=== PATIENT | male | born 1990 | race Caucasian/White ===

== ENCOUNTER 2016-12-01 19:24 | Emergency (ER) | payer OTHER ==
[~2016-12-01] VITALS: Ht 175.3 cm; Wt 70.3 kg
[~2016-12-01 19:24] MED LIST: GLIM2TAB PO; INSULANT SC; LISI-538 PO; METF750T PO
[2016-12-01] MEDS ORDERED: TOUJ1.2I SC (20:01)
[2016-12-01] MEDS ORDERED: VIST50CA PO (20:01)
[2016-12-01] MEDS ORDERED: METF1000 PO (20:01)
[2016-12-01] MEDS ORDERED: ZOLO50TA PO (20:01)
[2016-12-01] MEDS ORDERED: NS 1,000 ML IV ONE (22:30)
[2016-12-01] MEDS ORDERED: ONDANSETRON 4MG/2ML VIAL (J2405) IV ONE (22:30)
[2016-12-01] MEDS ORDERED: KETOROLAC 30 MG/ML VIAL (J1885) IV ONE (22:30)
[2016-12-01 23:04] LABS: BASO % 0.5 % (0.0-1.0); EOS # 0.2 K/mm3 (0.0-0.50); EOS % 1.8 % (0.0-3.0); LARGE UNSTAINED CELL # 0.2 K/mm3 (0.0-0.4); LARGE UNSTAINED CELL % 2.2 % (0.0-4.0); LYMPH # 4.2 K/mm3 (1.5-6.5); LYMPH % 35.6 % (24.0-44.0); MEAN CORPUSCULAR HGB CONC 34.4 g/dl (32.0-36.5); MEAN CORPUSCULAR VOLUME 87.2 fl (80.0-96.0); MONO # 0.8 K/mm3 (0.0-0.8); MONO % 7.1 % (0.0-5.0); NEUTROPHILS # 5.9 K/mm3 (1.8-7.7); NEUTROPHILS % 52.8 % (36.0-66.0); PLATELET COUNT, AUTOMATED 249 k/mm3 (150-450); RED CELL DISTRIBUTION WIDTH 11.5 % (11.5-14.5); WHITE BLOOD COUNT 11.2 K/mm3 (4.0-10.0)
[2016-12-01 23:27] LABS: MICROSCOPIC INDICATED? MAN YES (NO)
[2016-12-01 23:46] LABS: RBC, URINE TNTC /hpf (0-3); WBC, URINE 0-1 /hpf (0-3)
[2016-12-01 23:47] LABS: SQUAMOUS EPITHELIAL CELL URINE NONE SEEN /hpf (SMALL AMT)
[2016-12-01 23:48] LABS: CALCIUM OXALATE CRYSTALS,URINE LARGE AMOUNT /hpf
[2016-12-01 23:50] LABS: BACTERIA, URINE NONE SEEN; HYALINE CAST, URINE NONE SEEN /lpf (0-1); MICROSCOPIC EXAM PERFORMED
[2016-12-01 23:54] LABS: ALBUMIN 4.5 GM/DL (3.2-5.2); ALBUMIN/GLOBULIN RATIO 1.18 (1.00-1.93); ALKALINE PHOSPHATASE 102 U/L (45-117); ALT/SGPT 23 U/L (12-78); ANION GAP 11 MEQ/L (8-16); AST/SGOT 15 U/L (15-37); BILIRUBIN,DIRECT 0.1 MG/DL (0.0-0.2); BILIRUBIN,TOTAL 0.5 MG/DL (0.2-1.0); BLOOD UREA NITROGEN 15 MG/DL (7-18); CALCIUM LEVEL 9.5 MG/DL (8.5-10.1); CARBON DIOXIDE LEVEL 24 MEQ/L (21-32); CHLORIDE LEVEL 107 MEQ/L (98-107); CREATININE FOR GFR 0.89 MG/DL (0.70-1.30); GLOMERULAR FILTRATION RATE > 60.0 (>60); GLUCOSE, FASTING 93 MG/DL (70-105); POTASSIUM SERUM 3.4 MEQ/L (3.5-5.1); SODIUM LEVEL 142 MEQ/L (136-145); TOTAL PROTEIN 8.3 GM/DL (6.4-8.2)
[2016-12-02 02:02] VITALS: BP 121/72
--- NOTE | 2016-12-02 08:05 | REPUSA ---
CT of the abdomen and pelvis without contrast Clinical statement: Pain. Technique: Multiple axial CT images were obtained from the base of the lungs to the floor of the pelv is utilizing 5 mm axial slices without administration of contrast. Coronal and sagittal reconstructio ns were also obtained. Comparison: 06/16/2016. Findings: Chest: The visualized lung bases are clear. Abdomen: The kidneys are normal in size bilaterally. There is numerous nonobstructing stone seen with in both kidneys. There is no evidence of hydronephrosis. The obstructing stone in the distal right ur eter seen on the prior study has resolved. The liver, spleen, pancreas, gallbladder and adrenal gland s are unremarkable. The aorta demonstrates normal caliber and contour. There is no abdominal lymphade nopathy or ascites. Pelvis: The bowel is unremarkable, with no obstructive or inflammatory changes. The appendix is natali l. The urinary bladder is within normal limits. There is no pelvic lymphadenopathy or ascites. The ot her pelvic structures appear unremarkable. Bones: There are no suspicious osseous abnormalities seen. Impression: Bilateral nonobstructing nephrolithiasis. No obstructive or inflammatory bowel changes. O therwise unremarkable study.
== END 2016-12-02 02:05 | disposition home or self-care (01) ==
LOC: M ED 20:57
DX: R31.9 Hematuria, unspecified (principal); R10.32 Left lower quadrant pain; R11.10 Vomiting, unspecified; E11.9 Type 2 diabetes mellitus without complications; Z87.442 Personal history of urinary calculi; F99 Mental disorder, not otherwise specified; F17.210 Nicotine dependence, cigarettes, uncomplicated; Z79.899 Other long term (current) drug therapy; Z79.84 Long term (current) use of oral hypoglycemic drugs; Z79.4 Long term (current) use of insulin
CPT/HCPCS: 74176; 80048; 80076; 81000; 83690; 85025; 87086; 96361; 96374; 96375; 99282; J1885; J2405

== ENCOUNTER 2017-01-12 17:00 | Inpatient (IN) | payer OTHER ==
[~2017-01-12] VITALS: Ht 175.3 cm; Wt 68.1 kg
[~2017-01-12 17:00] MED LIST changes: +METF1000 PO; +TOUJ1.2I SC; +VIST50CA PO; +ZOLO50TA PO
[2017-01-12 17:42] LABS: MEAN CORPUSCULAR HEMOGLOBIN 29.6 pg (27.0-33.0); MEAN CORPUSCULAR HGB CONC 34.3 g/dl (32.0-36.5); MEAN CORPUSCULAR VOLUME 86.2 fl (80.0-96.0); RED CELL DISTRIBUTION WIDTH 11.8 % (11.5-14.5)
[2017-01-12 18:02] LABS: METHADONE URINE NEGATIVE (NEGATIVE)
[2017-01-12 18:11] LABS: ALBUMIN 4.4 GM/DL (3.2-5.2); ALBUMIN/GLOBULIN RATIO 1.42 (1.00-1.93); ALKALINE PHOSPHATASE 86 U/L (45-117); ALT/SGPT 25 U/L (12-78); ANION GAP 9 MEQ/L (8-16); AST/SGOT 14 U/L (15-37); BILIRUBIN,DIRECT 0.2 MG/DL (0.0-0.2); BILIRUBIN,TOTAL 0.6 MG/DL (0.2-1.0); BLOOD UREA NITROGEN 14 MG/DL (7-18); CARBON DIOXIDE LEVEL 25 MEQ/L (21-32); CHLORIDE LEVEL 106 MEQ/L (98-107); CREATININE FOR GFR 0.97 MG/DL (0.70-1.30); GLOMERULAR FILTRATION RATE > 60.0 (>60); GLUCOSE, FASTING 139 MG/DL (70-105); POTASSIUM SERUM 3.9 MEQ/L (3.5-5.1); SODIUM LEVEL 140 MEQ/L (136-145); TOTAL PROTEIN 7.5 GM/DL (6.4-8.2)
[2017-01-12] MEDS ORDERED: metFORMIN (GLUCOPHAGE) 1000 MG TABLET PO ONE ×2 (20:45→22:15)
[2017-01-12] MEDS ORDERED: MAALOX 30 ML SUSP *UDC PO PRN (21:00)
[2017-01-12] MEDS ORDERED: GLIMEPIRIDE 2 MG TAB PO ONE ×2 (21:00→22:30)
[2017-01-12] MEDS ORDERED: MOM 30ML SUSPENSION UDC PO PRN (21:00)
[2017-01-12] MEDS ORDERED: GLIMEPIRIDE 2 MG TAB PO SCH (21:00)
[2017-01-12 23:05] VITALS: BP 114/80
[2017-01-13] MEDS: traZODone 50 MG TAB PO PRN ×2 (00:56→22:35)
[2017-01-13] MEDS: ACETAMINOPHEN TAB 650MG DOSE (2X325MG) PO PRN ×2 (01:00→15:37)
[2017-01-13 06:21] VITALS: BP 127/64
[2017-01-13] MEDS: NICOTINE 21MG/24HR 1 EA TRANSDERMAL TD SCH (08:25)
--- NOTE | 2017-01-13 10:31 | HPEPDOC ---
Medical History and Physical Date of Admission Jan 12, 2017 at 20:59 History and Physical PCP: Dr Bran Gutierrez [facility] ATTENDING: Dr. Norman Murphy HPI: 26yoM admitted to [facility] for Depression, being medically examined today. No acute medical complaints today. Denies any fevers, chills, weakness, fatigue, SHARMA , CP, SOB, cough, palpitations, abdominal pain, N/V/D or changes in bowel or bladder habits. PMHx: IDDM Anxiety Depression Bipolar disorder OCD Insomnia H/O SI PSHX: heart surgery at 6 wk old. SOCHX: Resides in: [facility] Marital Status: single Kids: 2 Employment: unemployed Tobacco use: 4 per day ETOH: denies Illicit Drugs: marijuana "as often as I can" IV Drug Use: Denies Tattoos done unprofessionally: x 6 FAMHX: Mother: Alive, HTN Father: Alive, unknown Siblings: 3 brothers, 1 sister Alive, well Children: Alive, well Unexpected deaths due to medical reasons: None. ROS: As noted in HPI, otherwise 11pt ROS of systems reviewed and unremarkable. PE: GEN: 26yoM, appears stated age. Well-nourished, well developed. No acute distress. Alert and oriented x 3. Pleasant, interactive. HEENT: Normocephalic, atraumatic. Pupils are equal, round, and reactive to light. Extraocular movements are intact. No nystagmus appreciated. Sclera are nonicteric. Conjunctiva without injection. Nose midline. Nasal turbinates without bogginess. EACs both patent BL. TMs both visualized and lima with good cone of light, no bulging or erythema. No facial asymmetry. Moist mucous membranes. Dentition fair. Pharynx pink and moist, no cobblestoning. Neck supple , trachea midline. No lymphadenopathy or thyromegaly appreciated. CHEST: Regular rate and rhythm, +S1, +S2 LUNGS: Clear to auscultation bilaterally. No wheezes, rales, or rhonchi. Breathing appears symmetric and easy. Patient is speaking in full sentences. No accessory muscle use. ABD: Round, soft, non-tender, non-distended. +Bowel sounds throughout. No rebound or guarding. No costovertebral angle tenderness. EXT: Pulses 2+ bilaterally dorsalis pedis and radial. No lower extremity edema appreciated. SKIN: Igo, dry, warm. Capillary refill <2sec. No rashes. NEURO: Alert and oriented x 3. Cranial nerves III-XII are intact. No focal deficits appreciated. EKG: pending. A&P: 26yoM admitted to [facility] for Depression 1. Psych. Plan per Psychiatry. Obtain baseline EKG to assure the safety of psychiatric medications as they can prolong the QT interval. 2. Nicotine dependence. Patch available. 3. IDDM. Update Hgb A1c. FSBS BID. CC diet. Continue Glimepiride 2 mg BID. Continue Metformin 1000mg BID. Pt is on Toujeo 18units as outpt, which he can resume at discharge. Will request Levemir 10 units QPM. 4. Follow up with PCP on discharge. 5. Substance abuse. Per psychiatry. 6. H/O tattoos done unprofessionally. Pt agrees to HIV/Hepatitis screening. 7. Staff member Harrison present throughout exam. Vital Signs Vital Signs Date Time Temp Pulse Resp B/P Pulse Ox O2 Delivery O2 Flow Rate FiO2 01/13/17 06:21 98.8 102 16 127/64 01/12/17 21:10 95 01/12/17 17:01 Room Air Laboratory Data Labs 24H Laboratory Tests 2 01/12/17 17:30: Acetaminophen Level < 2.0L, Aspartate Amino Transf (AST/SGOT) 14L, Alanine Aminotransferase (ALT/SGPT) 25, Alkaline Phosphatase 86, Total Bilirubin 0.6, Direct Bilirubin 0.2, Albumin 4.4, Albumin/Globulin Ratio 1.42, Anion Gap 9, Calcium Level 9.0, Ethyl Alcohol Level < 0.003, Glomerular Filtration Rate > 60.0, Salicylates Level < 1.7L, Thyroid Stimulating Hormone (TSH) 0.397, Total Protein 7.5, Urine Amphetamines Screen NEGATIVE, Urine Benzodiazepines Screen POSITIVEH, Urine Opiates Screen NEGATIVE, Urine Barbiturates Screen NEGATIVE, Urine Cannabinoids Screen POSITIVEH, Urine Cocaine Metabolite Screen NEGATIVE, Urine Methadone Screen NEGATIVE, Urine Phencyclidine Screen NEGATIVE CBC/BMP Laboratory Tests 01/12/17 17:30 Red Blood Count 5.06, Mean Corpuscular Volume 86.2, Mean Corpuscular Hemoglobin 29.6, Mean Corpuscular Hemoglobin Concent 34.3, Red Cell Distribution Width 11.8 Home Medications Scheduled (Toujeo Solostar) 300 Unit/Ml Inj 18 UNIT SC DAILY Glimepiride (Glimepiride) 2 Mg Tab 2 MG PO BID Metformin Hydrochloride (Metformin HCl) 1,000 Mg Tab 1,000 MG PO BID Sertraline Hcl (Zoloft) 50 Mg Tab 50 MG PO DAILY Scheduled PRN Hydroxyzine Pamoate (Vistaril) 50 Mg Cap 50 MG PO PRN ANXIETY/AGITATION Allergies Coded Allergies: No Known Allergies (Unverified , 02/26/16) Stacie Parnell Jan 13, 2017 10:31
[2017-01-13] MEDS: GLIMEPIRIDE 2 MG TAB PO SCH ×2 (11:22→21:08)
[2017-01-13] MEDS: metFORMIN (GLUCOPHAGE) 1000 MG TABLET PO SCH ×2 (11:22→21:08)
[2017-01-13 18:00] VITALS: BP 126/69
[2017-01-13] MEDS ORDERED: hydrOXYzine 50 MG TAB PO PRN (18:45)
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
[2017-01-13] MEDS: LEVEMIR (INSULIN DETEMIR) 1 UNITS/0.01ML SC SCH (21:08)
[2017-01-13] MEDS ORDERED: traZODone 50 MG TAB PO ONE (23:30)
[2017-01-14 07:18] VITALS: BP 130/76
[2017-01-14] MEDS: NICOTINE 21MG/24HR 1 EA TRANSDERMAL TD SCH (08:52)
[2017-01-14] MEDS: GLIMEPIRIDE 2 MG TAB PO SCH ×2 (08:52→21:40)
[2017-01-14] MEDS: metFORMIN (GLUCOPHAGE) 1000 MG TABLET PO SCH (08:52)
--- NOTE | 2017-01-14 14:45 | IPNPDOC ---
[facility] Progress Note Progress Note DATE OF SERVICE: 01/14/17 HISTORY: This is the fourth hospitalization according to patient who is a 26- year-old male who brought himself to the emergency room after experiencing suicidal ideation to go into the [place] across the [place] from his home and hang himself from a tree. Patient reports improvement to symptoms of anxiety and depression, denies suicidal and homicidal ideation, denies audiovisual hallucinations, denies urge to engage in self-injurious behavior. 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 Patient indicates his appetite is stabilizing, reports improvement to energy level and denies challenges concentration and focus. Patient states trazodone taken last night was only partially effective, was provided with second dose with improved affect, makes requests today for trazodone dose increase. 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 Medication options were again reviewed with patient who continues to deny need for psychotropic medications citing lack of need and has not needed to utilize PRN anxiolytic. Patient reiterates he feels he will benefit from psychotherapy. Patient speaks openly today about "my twitch and my tic," indicates symptoms began in 2008 with no known cause. Patient reiterates today he has OCD stating, "I'm OCD because I can't stand odd numbers, disorganization, I like a clean house, and I'm fidgety." Patient reiterates that he feels marijuana is the most effective medication for treating symptoms of "my bipolar mood swings and my anxiety," states he intends to continue to use marijuana noting, "I'm dependent on it but I plan to get on disability so that I can get medical marijuana so I can continue to use." Patient has been strongly encouraged to consider participating in substance abuse treatment, is declining at this time. When queried as to positive UDS for benzodiazepines at time of admission, patient indicates "a friend" provided him with Valium just prior to admission due to symptoms of anxiety and agitation, describes as a "one time thing." Nursing was made aware patient report of vomiting 1 this morning which she attributes to need for metformin dosing adjustment. Patient was instructed to inform nursing of symptoms of nausea or vomiting return. VITALS: See below NEW TEST RESULTS: Hepatitis negative. Labs indicate elevated glucose and low AST , PA is monitoring. PAST MEDICAL/SURGICAL HISTORY: Patient has a history of heart surgery at 6 weeks of age noting, "I was oxygen deprived for 6 weeks," diabetes mellitus, insulin-dependent. 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 UDS positive for cannabinoids and benzodiazepines EKG pending CURRENT MEDICATIONS: See below MENTAL STATUS EXAMINATION: General appearance: Patient is a 26-year old male, who is pleasant and cooperative, presents with adequate personal hygiene, dressed in hospital clothing, makes improved eye contact today, ambulates with steady gait, appears stated age Speech: Less pressure today, of generally normal rate, rhythm, volume, coherent , spontaneous. Thought processes: Linear, logical, goal-directed, less circumstantiality Thought content: Logical, rational, no paranoia noted. Abstract reasoning and computation: Appears intact. Description of associations: Intact. Description of abnormal or psychotic thoughts: Denies suicidal or homicidal ideation, denies audiovisual hallucinations, however, reports history of visual hallucinations but only when sleep deprived, does not appear to be responding to internal stimuli, does not endorse bizarre or paranoid ideation, does not appear preoccupied with violence or obsessions. Judgment: Poor, some improvement Insight: Poor Orientation: A and O 3. Recent and remote memory: Appear intact. Attention span and concentration: Appears adequate. Fund of knowledge: Appears adequate. Mood: "Pretty good, my mood is not so up and down." Patient reports reduced symptoms of anxiety and depression, no mood lability noted Affect: Constricted, and brightens 2, congruent with mood DIAGNOSES: Unspecified mood disorder, cannabis use disorder, rule out IED, rule out ICD, rule out OCD, rule out bipolar disorder, rule out anxiety disorder, rule out depressive disorder, rule out PTSD, rule out personality disorder ASSESSMENT: Patient appears to be adjusting to unit, is sociable, pleasant and cooperative, is participating in unit activities. Patient was being prescribed Zoloft 50 mg by outpatient provider, denies noting improvement to symptoms with medication, indicates he was only partially medication compliant. Patient denies need for psychotropic medication, is requesting dose increased trazodone in effort to improve sleep, has not had cause to utilize Vistaril 50 mg PRN for anxiety/agitation. Patient reiterates he has undergone numerous medications trials, is unable to provide concrete information on past medication trials, has signed ROIs for social work nurse to pursue previous treatment records. Patient denies suicidal and homicidal ideation and verbalizes awareness of how to access supportive services on the unit if needed. Will increase trazodone to address sleep challenges and will continue to collect background treatment information, and will monitor patient's response to medications and for side effects. Will evaluate patient's safety, resolution of suicidal ideation, and discharge readiness. Patient indicates when prepared for discharge she would like to return home with girlfriend and resume treatment with [facility] services for psychotherapy. MANAGEMENT PLAN: Increase trazodone to 100 mg po hs PRN insomnia. Continue hydroxyzine 50 mg po q 6 hours PRN anxiety/agitation Continue to encourage patient to consider taking psychotropic medication to address symptoms if appropriate Maintain safety precautions Patient to attend groups and participate in unit programming to develop coping strategies Engage patient in discharge planning process and arrange meeting with support system to ensure safe discharge planning when appropriate Patient to follow up with PCM upon discharge TIME SPENT: 35 minutes Vital Signs Vital Signs Date Time Temp Pulse Resp B/P Pulse Ox O2 Delivery O2 Flow Rate FiO2 01/14/17 07:18 98.3 97 16 130/76 01/12/17 21:10 95 01/12/17 17:01 Room Air Current Medications Current Medications Acetaminophen (Tylenol Tab) 650 mg Q6HP PRN PO HEADACHE or DISCOMFORT Last administered on 01/13/17 15:37; Start 01/12/17 at 21:00; Stop 02/11/17 at 20:59 Al Hydrox/Mg Hydrox/Simethicone (Mylanta) 30 ml Q4HP PRN PO HEARTBURN/ INDIGESTION; Start 01/12/17 at 21:00; Stop 02/11/17 at 20:59 Glimepiride (Amaryl) 2 mg BID PO Last administered on 01/14/17 08:52; Start at 09:00; Stop 02/12/17 at 08:59 Glimepiride (Amaryl) 2 mg QHS PO ; Start 01/12/17 at 21:00; Stop 01/12/17 at 21: 06; Status DC Home Med (Med Rec Complete!) ASDIRECTED XX ; Start 01/12/17 at 19:45; Stop at 19:45; Status DC Hydroxyzine HCl (Atarax) 50 mg Q6HP PRN PO anxiety/agitation; Start 01/13/17 at 18:45; Stop 02/12/17 at 18:44 Insulin Detemir (Levemir Insulin) 10 units QHS SC Last administered on 21:08; Start 01/13/17 at 21:00; Stop 02/12/17 at 20:59 Magnesium Hydroxide (Milk Of Magnesia) 30 ml DAILYPRN PRN PO CONSTIPATION; Start 01/12/17 at 21:00; Stop 02/11/17 at 20:59 Metformin HCl (Glucophage) 1,000 mg BID PO Last administered on 01/14/17 08:52 ; Start 01/13/17 at 09:00; Stop 02/12/17 at 08:59 Nicotine (Nicoderm Cq 21mg) 1 patch DAILY TD Last administered on 01/14/17 08: 52; Start 01/13/17 at 09:00; Stop 02/12/17 at 08:59 Trazodone HCl (Desyrel) 50 mg QHSP PRN PO INSOMNIA Last administered on 22:35; Start 01/12/17 at 21:00; Stop 02/11/17 at 20:59 Allergies Coded Allergies: No Known Allergies (Unverified , 02/26/16) Lucero Torres Jan 14, 2017 14:45
[2017-01-14] MEDS: metFORMIN (GLUCOPHAGE) 500 MG TAB PO SCH (17:27)
[2017-01-14 18:00] VITALS: BP 127/80
[2017-01-14] MEDS: LEVEMIR (INSULIN DETEMIR) 1 UNITS/0.01ML SC SCH (21:40)
[2017-01-14] MEDS: traZODone 100 MG TAB PO PRN (23:19)
[2017-01-15 06:40] VITALS: BP 114/62
[2017-01-15] MEDS: NICOTINE 21MG/24HR 1 EA TRANSDERMAL TD SCH (08:13)
[2017-01-15] MEDS: metFORMIN (GLUCOPHAGE) 500 MG TAB PO SCH ×2 (08:13→17:49)
[2017-01-15] MEDS: GLIMEPIRIDE 2 MG TAB PO SCH ×2 (08:13→22:29)
[2017-01-15 18:00] VITALS: BP 118/66
--- NOTE | 2017-01-15 18:52 | ECGEPIP ---
Stationary ECG Study [facility] Test Date: 2017-01-15 Pat Name: PEARL BUSTOS Department: Room: [place] [address] Gender: M Child Welfare Director: EILEEN : 1990 Requested By: Lucero Torres Order Number: [id number] Reading MD: Norman Murphy Measurements Intervals [place] Rate: 98 P: 46 OR: 152 QRS: 65 QRSD: 102 T: 45 QT: 343 QTc: 439 Interpretive Statements SINUS RHYTHM Borderline prolonged QTc Electronically Signed On 01-15-2017 18:51:42 EDT by Norman Murphy
--- NOTE | 2017-01-15 18:53 | IPNPDOC ---
[facility] Progress Note Progress Note DATE OF SERVICE: 01/15/17 INTERVAL HISTORY: Medication Side effects: The patient reports no side effects from his trazodone or hydroxyzine. Behavior/events: He's had no events over the previous evening. He describes that he is anxiously awaiting a visit from his today. He was interested in medical marijuana and whether he could be certified for it. He described interest in what his diagnosis was. Group Attendance: Attended groups today Psychiatric Symptoms: The patient was screened for borderline personality disorder of which she screen positive for especially for fear of abandonment, intense anger, chronic emptiness, fiery relationships, stress-induced paranoia, suspiciousness and billet sawyer losses. VITAL SIGNS: See below. NEW TEST RESULTS: See below CURRENT MEDICATIONS: See below. MENTAL STATUS EXAMINATION: General: Well dressed with good hygiene. Has multiple piercings Speech: Spontaneous and fluid with mild pressured speech Thought processes: Linear and logical Thought content: Perseveration on anxiety and marijuana Abstract reasoning, and computation: Intact Description of associations: Intact Description of abnormal or psychotic thoughts:Denies any suicidal or homicidal ideation. Denies any auditory or visual hallucinations. Does not appear to be responding to internal stimuli. Does not appear to be endorsing any bizarre or paranoid ideation. Judgment: Fair Insight: Fair Orientation: Alert and orientated 3 Recent and remote memory: Intact Attention span and concentration: Intact Fund of knowledge: Adequate Mood: "Okay" Affect: Anxious and dysphoric DIAGNOSES: 1. Borderline personality disorder, provisional. 2. Unspecified anxiety disorder 3. Cannabis use disorder, severe, in controlled setting ASSESSMENT: The patient appears to meet criteria for borderline personality disorder and has a number symptoms that are explained due to the long history of chronic emptiness, depression and anxiety as well as mood fluctuations. Psychometric testing to prove useful to confirm and parse out different aspects of his personality structure. MANAGEMENT PLAN: Medications: Continue trazodone and hydroxyzine Psychotherapy: Encourage group attendance Social: None Misc: None Disposition: The patient will need of further inpatient stay to address stabilization and medication titration. TIME SPENT: 30 minutes. Vital Signs Vital Signs Date Time Temp Pulse Resp B/P Pulse Ox O2 Delivery O2 Flow Rate FiO2 01/15/17 06:40 98.9 100 16 114/62 01/12/17 21:10 95 01/12/17 17:01 Room Air Laboratory Data 24H Labs Laboratory Tests 2 01/15/17 06:36: Bedside Glucose (Misc Panel) 67L 01/15/17 17:47: Bedside Glucose (Misc Panel) 180H Current Medications Current Medications Acetaminophen (Tylenol Tab) 650 mg Q6HP PRN PO HEADACHE or DISCOMFORT Last administered on 01/13/17 15:37; Start 01/12/17 at 21:00; Stop 02/11/17 at 20:59 Al Hydrox/Mg Hydrox/Simethicone (Mylanta) 30 ml Q4HP PRN PO HEARTBURN/ INDIGESTION; Start 01/12/17 at 21:00; Stop 02/11/17 at 20:59 Glimepiride (Amaryl) 2 mg BID PO Last administered on 01/15/17 08:13; Start at 09:00; Stop 02/12/17 at 08:59 Glimepiride (Amaryl) 2 mg QHS PO ; Start 01/12/17 at 21:00; Stop 01/12/17 at 21: 06; Status DC Home Med (Med Rec Complete!) ASDIRECTED XX ; Start 01/12/17 at 19:45; Stop at 19:45; Status DC Hydroxyzine HCl (Atarax) 50 mg Q6HP PRN PO anxiety/agitation; Start 01/13/17 at 18:45; Stop 02/12/17 at 18:44 Insulin Detemir (Levemir Insulin) 10 units QHS SC Last administered on 21:40; Start 01/13/17 at 21:00; Stop 02/12/17 at 20:59 Magnesium Hydroxide (Milk Of Magnesia) 30 ml DAILYPRN PRN PO CONSTIPATION; Start 01/12/17 at 21:00; Stop 02/11/17 at 20:59 Metformin HCl (Glucophage) 500 mg BID@08,18 PO Last administered on 01/15/17 17:49; Start 01/14/17 at 18:00; Stop 02/13/17 at 17:59 Metformin HCl (Glucophage) 1,000 mg BID PO Last administered on 01/14/17 08:52 ; Start 01/13/17 at 09:00; Stop 01/14/17 at 16:52; Status DC Nicotine (Nicoderm Cq 21mg) 1 patch DAILY TD Last administered on 01/15/17 08: 13; Start 01/13/17 at 09:00; Stop 02/12/17 at 08:59 Trazodone HCl (Desyrel) 50 mg QHSP PRN PO INSOMNIA Last administered on 22:35; Start 01/12/17 at 21:00; Stop 01/14/17 at 14:46; Status DC Trazodone HCl (Desyrel) 100 mg QHSP PRN PO INSOMNIA Last administered on 23:19; Start 01/14/17 at 14:45; Stop 02/13/17 at 14:44 Allergies Coded Allergies: No Known Allergies (Unverified , 02/26/16) GME ATTESTATION My preceptor for this patient encounter was physically present in the building during the encounter and was fully available. As needed, all aspects of the patient interview, examination, medical decision making process, and medical care plan development were reviewed and approved by the preceptor. Preceptor is aware and concurs with the plan as stated in the body of this note and will attest to such by his/her cosignature. ALBERTO TERRAZAS DO Jan 15, 2017 18:53
[2017-01-15] MEDS: LEVEMIR (INSULIN DETEMIR) 1 UNITS/0.01ML SC SCH (22:29)
[2017-01-16] MEDS: traZODone 100 MG TAB PO PRN ×2 (00:14→23:04)
[2017-01-16 06:48] VITALS: BP 133/86
[2017-01-16] MEDS: GLIMEPIRIDE 2 MG TAB PO SCH ×2 (08:10→22:05)
[2017-01-16] MEDS: NICOTINE 21MG/24HR 1 EA TRANSDERMAL TD SCH (08:10)
[2017-01-16] MEDS: metFORMIN (GLUCOPHAGE) 500 MG TAB PO SCH ×2 (08:10→17:12)
[2017-01-16 18:00] VITALS: BP 128/72
--- NOTE | 2017-01-16 18:28 | IPNPDOC ---
[facility] Progress Note Progress Note DATE OF SERVICE: 01/16/17 HISTORY: 26 year old male with history of suicidal ideation and wanting to hang himself from a [place]. He has been recently diagnosed as having Borderline personality disorder, provisional, Unspecified anxiety disorder and Cannabis use disorder, severe. Currently he's denying suicidal ideation, homicidal ideation, delusional thoughts, auditory/visual hallucinations.His judgment and insight have improved. He is alert and oriented x 3, cooperative, with good eye contact and good rapport. Speech is normal. Thought process is linear, coherent. he's not a danger to himself or others. VITAL SIGNS: See below. NEW TEST RESULTS: . CURRENT MEDICATIONS: See below. ASSESSMENT:Pt. seems to be fairly stable. MANAGEMENT PLAN: Continue current treatment until discharged. Then, follow up with treatment as an outpatient.. TIME SPENT: 15 minutes. Vital Signs Vital Signs Date Time Temp Pulse Resp B/P Pulse Ox O2 Delivery O2 Flow Rate FiO2 01/16/17 06:48 98.4 99 18 133/86 01/12/17 21:10 95 01/12/17 17:01 Room Air Laboratory Data 24H Labs Laboratory Tests 2 01/16/17 06:40: Bedside Glucose (Misc Panel) 70 Current Medications Current Medications Acetaminophen (Tylenol Tab) 650 mg Q6HP PRN PO HEADACHE or DISCOMFORT Last administered on 01/13/17 15:37; Start 01/12/17 at 21:00; Stop 02/11/17 at 20:59 Al Hydrox/Mg Hydrox/Simethicone (Mylanta) 30 ml Q4HP PRN PO HEARTBURN/ INDIGESTION; Start 01/12/17 at 21:00; Stop 02/11/17 at 20:59 Glimepiride (Amaryl) 2 mg BID PO Last administered on 01/16/17 08:10; Start at 09:00; Stop 02/12/17 at 08:59 Glimepiride (Amaryl) 2 mg QHS PO ; Start 01/12/17 at 21:00; Stop 01/12/17 at 21: 06; Status DC Home Med (Med Rec Complete!) ASDIRECTED XX ; Start 01/12/17 at 19:45; Stop at 19:45; Status DC Hydroxyzine HCl (Atarax) 50 mg Q6HP PRN PO anxiety/agitation; Start 01/13/17 at 18:45; Stop 02/12/17 at 18:44 Insulin Detemir (Levemir Insulin) 10 units QHS SC Last administered on 22:29; Start 01/13/17 at 21:00; Stop 02/12/17 at 20:59 Magnesium Hydroxide (Milk Of Magnesia) 30 ml DAILYPRN PRN PO CONSTIPATION; Start 01/12/17 at 21:00; Stop 02/11/17 at 20:59 Metformin HCl (Glucophage) 500 mg BID@,18 PO Last administered on 01/16/17 17:12; Start 01/14/17 at 18:00; Stop 02/13/17 at 17:59 Metformin HCl (Glucophage) 1,000 mg BID PO Last administered on 01/14/17 08:52 ; Start 01/13/17 at 09:00; Stop 01/14/17 at 16:52; Status DC Nicotine (Nicoderm Cq 21mg) 1 patch DAILY TD Last administered on 01/16/17 08: 10; Start 01/13/17 at 09:00; Stop 02/12/17 at 08:59 Trazodone HCl (Desyrel) 50 mg QHSP PRN PO INSOMNIA Last administered on 22:35; Start 01/12/17 at 21:00; Stop 01/14/17 at 14:46; Status DC Trazodone HCl (Desyrel) 100 mg QHSP PRN PO INSOMNIA Last administered on 00:14; Start 01/14/17 at 14:45; Stop 02/13/17 at 14:44 Allergies Coded Allergies: No Known Allergies (Unverified , 02/26/16) RAYO ALEJANDRO MD Jan 16, 2017 18:28 Metformin HCl (Glucophage) 1,000 mg BID PO Last administered on 01/14/17 08:52 ; Start 01/13/17 at 09:00; Stop 01/14/17 at 16:52; Status DC Nicotine (Nicoderm Cq 21mg) 1 patch DAILY TD Last administered on 01/16/17 08: 10; Start 01/13/17 at 09:00; Stop 02/12/17 at 08:59 Trazodone HCl (Desyrel) 50 mg QHSP PRN PO INSOMNIA Last administered on 22:35; Start 01/12/17 at 21:00; Stop 01/14/17 at 14:46; Status DC Trazodone HCl (Desyrel) 100 mg QHSP PRN PO INSOMNIA Last administered on 00:14; Start 01/14/17 at 14:45; Stop 02/13/17 at 14:44 Allergies Coded Allergies: No Known Allergies (Unverified , 02/26/16) RAYO ALEJANDRO MD Jan 16, 2017 18:28
[2017-01-16] MEDS: LEVEMIR (INSULIN DETEMIR) 1 UNITS/0.01ML SC SCH (22:09)
[2017-01-17 06:26] VITALS: BP 134/75
[2017-01-17] MEDS: NICOTINE 21MG/24HR 1 EA TRANSDERMAL TD SCH (08:24)
[2017-01-17] MEDS: GLIMEPIRIDE 2 MG TAB PO SCH ×2 (08:24→22:26)
[2017-01-17] MEDS: metFORMIN (GLUCOPHAGE) 500 MG TAB PO SCH ×2 (08:24→17:18)
--- NOTE | 2017-01-17 11:41 | IPNPDOC ---
[facility] Progress Note Progress Note DATE OF SERVICE: 01/17/17 HISTORY: This is the fourth hospitalization according to patient who is a 26- year-old male who brought himself to the emergency room after experiencing suicidal ideation to go into the [place] across the [place] from his home and hang himself from a tree. Patient denies symptoms of anxiety and depression, denies suicidal and homicidal ideation, denies audiovisual hallucinations, denies urge to engage in self-injurious behavior. Patient states he is feeling better today , denies mood lability, denies irritability, and agitation. Patient states he and girlfriend got into a verbal altercation over telephone over the weekend and he was able to utilize coping mechanisms and affectively de-escalate, notes they have since reconciled. Patient indicates appetite is stable, denies challenges with energy level or concentration and focus, reports improvement to sleep and denies struggling with sleep at home. Patient has not needed to utilize PRN hydroxyzine. Patient denies medication side effects. Patient reiterates today when prepared for discharge he would like to return home with girlfriend and family and resume outpatient psychotherapy [facility]. Medication options were again reviewed with patient who continues to deny need for psychotropic medications citing lack of need, reiterates today he intends to resume use of marijuana in an effort to medicate symptoms of anxiety , OCD, "my moodiness," and sleep related challenges. Patient notes marijuana is the only effective medication for treating aforementioned symptoms. Patient reiterates he feels he will benefit from psychotherapy only. Patient has been strongly encouraged to consider participating in substance abuse treatment, is declining at this time. At time of admission UDS was also positive for an today as a feels which patient has indicated is due to "a friend" providing him with Valium just prior to admission due to symptoms of anxiety and agitation, described as a "one time thing." Previous treatment records procured by hospice bereavement coordinator, reviewed date of entry. Patient's EKG results were reviewed and patient denies all cardiac symptoms including dizziness, headache, palpitations, chest pain, and shortness of breath. VITALS: See below NEW TEST RESULTS: Hepatitis negative. Labs indicate elevated glucose and low AST , PA is monitoring. PAST MEDICAL/SURGICAL HISTORY: Patient has a history of heart surgery at 6 weeks , diabetes mellitus, insulin-dependent. 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 UDS positive for cannabinoids and benzodiazepines 01/15/17 EKG SINUS RHYTHM Borderline prolonged QTc (439). Patient is asymptomatic with outpatient follow-up recommended CURRENT MEDICATIONS: See below MENTAL STATUS EXAMINATION: General appearance: Patient is a 26-year old male, who is pleasant and cooperative, presents with adequate personal hygiene, dressed in hospital clothing, makes adequate eye contact, ambulates with steady gait, appears stated age Speech: Less pressure today, of generally normal rhythm, volume, coherent, spontaneous. Thought processes: Linear, logical, goal-directed, less circumstantiality Thought content: Logical, rational, no paranoia noted. Abstract reasoning and computation: Appears intact. Description of associations: Intact. Description of abnormal or psychotic thoughts: Denies suicidal or homicidal ideation, denies audiovisual hallucinations, is not responding to internal stimuli, does not endorse bizarre or paranoid ideation, does not appear preoccupied with violence or obsessions. Judgment: Fair, has improved during treatment Insight: Limited, has improved during treatment Orientation: A and O 3. Recent and remote memory: Appear intact. Attention span and concentration: Adequate. Fund of knowledge: Adequate. Mood: "Good, much better, treatment is helping me with my coping mechanisms and I'm able to control my mood." Patient denies anxiety and depression, no mood lability noted Affect: Full range, brightens frequently and appropriately, congruent with mood DIAGNOSES: Unspecified mood disorder, cannabis use disorder, OCD, Tic disorder disorder, rule out IED, rule out ICD, rule out bipolar disorder II, rule out anxiety disorder, rule out depressive disorder, rule out PTSD, rule out personality disorder ASSESSMENT: Patient has adjusted to unit, is visible, sociable, easily engaged, and has been participating well in unit programming. Patient was being prescribed Zoloft 50 mg by outpatient provider, denies noting improvement to symptoms with medication, indicates he was only partially medication compliant. Patient reiterates today he is undergone numerous medication trials and patient and movie writer spoke at length today regarding medications, patient reiterates he does not want to take psychotropic medications, feels he only needs to participate in psychotherapy to address symptoms. Trazodone was discontinued due to recent EKG results of borderline prolonged QTC, patient is asymptomatic and denies symptoms of shortness of breath, dizziness, headache, palpitations, and chest pain. Patient is aware he has hydroxyzine available to him PRN and for sleep, states he has not needed to utilize medication, also notes he has medication at home from prior prescription and will not need prescription at time of discharge, has used in the past with good effect reported. Patient reiterates today that he intends to resume regular use of marijuana after discharge and intends to pursue medicinal marijuana prescription through outpatient provider. Patient makes request today for movie writer to provide him with diagnoses of PTSD in effort to qualify for medicinal marijuana. The risks of marijuana use were reviewed with patient and recommendation was made that patient not to engage in substance use/abuse and not combine psychotropic medications; patient verbalized understanding. Patient denies suicidal and homicidal ideation and verbalizes awareness of how to access supportive services on the unit if needed. Will continue to monitor patient's response to inpatient treatment environment and will monitor patient's response to medications and for side effects. Will continue to evaluate patient's safety and discharge readiness. Family meeting has been completed and patient's girlfriend denies concerns patient's return to home and patient indicates he feels he is prepared for discharge. Patient is aware that discharge is being tentatively scheduled for tomorrow morning at which time he will return home with girlfriend and resume treatment with [facility] for psychotherapy. MANAGEMENT PLAN: Discontinue trazodone 100 mg po hs PRN insomnia. Change hydroxyzine to 50 mg po q 6 hours PRN anxiety/sleep Continue to encourage patient to consider taking psychotropic medication to address symptoms if appropriate Maintain safety precautions Patient to attend groups and participate in unit programming to develop coping strategies Engage patient in discharge planning process and arrange meeting with support system to ensure safe discharge planning when appropriate Patient to follow up with PCM upon discharge TIME SPENT: 35 minutes Vital Signs Vital Signs Date Time Temp Pulse Resp B/P Pulse Ox O2 Delivery O2 Flow Rate FiO2 01/17/17 06:26 98.9 81 16 134/75 01/12/17 21:10 95 01/12/17 17:01 Room Air Laboratory Data 24H Labs Laboratory Tests 2 01/16/17 17:12: Bedside Glucose (Misc Panel) 196H Current Medications Current Medications Acetaminophen (Tylenol Tab) 650 mg Q6HP PRN PO HEADACHE or DISCOMFORT Last administered on 01/13/17 15:37; Start 01/12/17 at 21:00; Stop 02/11/17 at 20:59 Al Hydrox/Mg Hydrox/Simethicone (Mylanta) 30 ml Q4HP PRN PO HEARTBURN/ INDIGESTION; Start 01/12/17 at 21:00; Stop 02/11/17 at 20:59 Glimepiride (Amaryl) 2 mg BID PO Last administered on 01/17/17 08:24; Start at 09:00; Stop 02/12/17 at 08:59 Glimepiride (Amaryl) 2 mg QHS PO ; Start 01/12/17 at 21:00; Stop 01/12/17 at 21: 06; Status DC Home Med (Med Rec Complete!) ASDIRECTED XX ; Start 01/12/17 at 19:45; Stop at 19:45; Status DC Hydroxyzine HCl (Atarax) 50 mg Q6HP PRN PO anxiety/agitation; Start 01/13/17 at 18:45; Stop 02/12/17 at 18:44 Insulin Detemir (Levemir Insulin) 10 units QHS SC Last administered on 22:09; Start 01/13/17 at 21:00; Stop 02/12/17 at 20:59 Magnesium Hydroxide (Milk Of Magnesia) 30 ml DAILYPRN PRN PO CONSTIPATION; Start 01/12/17 at 21:00; Stop 02/11/17 at 20:59 Metformin HCl (Glucophage) 500 mg BID@,18 PO Last administered on 01/17/17 08:24; Start 01/14/17 at 18:00; Stop 02/13/17 at 17:59 Metformin HCl (Glucophage) 1,000 mg BID PO Last administered on 01/14/17 08:52 ; Start 01/13/17 at 09:00; Stop 01/14/17 at 16:52; Status DC Nicotine (Nicoderm Cq 21mg) 1 patch DAILY TD Last administered on 01/17/17 08: 24; Start 01/13/17 at 09:00; Stop 02/12/17 at 08:59 Trazodone HCl (Desyrel) 50 mg QHSP PRN PO INSOMNIA Last administered on 22:35; Start 01/12/17 at 21:00; Stop 01/14/17 at 14:46; Status DC Trazodone HCl (Desyrel) 100 mg QHSP PRN PO INSOMNIA Last administered on 23:04; Start 01/14/17 at 14:45; Stop 02/13/17 at 14:44 Allergies Coded Allergies: No Known Allergies (Unverified , 02/26/16) Lucero Torres Jan 17, 2017 11:41
[2017-01-17 18:00] VITALS: BP 140/80
[2017-01-17] MEDS: LEVEMIR (INSULIN DETEMIR) 1 UNITS/0.01ML SC SCH (22:28)
[2017-01-18] MEDS: metFORMIN (GLUCOPHAGE) 500 MG TAB PO SCH (08:25)
[2017-01-18] MEDS: NICOTINE 21MG/24HR 1 EA TRANSDERMAL TD SCH (08:25)
[2017-01-18] MEDS: GLIMEPIRIDE 2 MG TAB PO SCH (08:25)
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
== END 2017-01-18 14:20 | disposition home or self-care (01) | DRG 753 ==
LOC: M ED 18:23 → M ED INP 20:59 → M PSY 23:07
PROVIDERS: ADMIT Psychiatry & Neurology Child & Adolescent Psychiatry; ATTEND Psychiatry & Neurology Psychiatry
DX: F39 Unspecified mood [affective] disorder (principal); E11.9 Type 2 diabetes mellitus without complications; F31.81 Bipolar II disorder; F12.90 Cannabis use, unspecified, uncomplicated; F95.9 Tic disorder, unspecified; F42.9 Obsessive-compulsive disorder, unspecified; F41.9 Anxiety disorder, unspecified; Z79.899 Other long term (current) drug therapy; F60.9 Personality disorder, unspecified; F17.200 Nicotine dependence, unspecified, uncomplicated

== ENCOUNTER → 2017-04-19 | Outpatient (CLI) | payer OTHER ==
[~2017-04-19] MED LIST changes: -METF1000 PO; +METF10004 PO; +METF500T13 PO; +ZOLO100T PO; +tujeo SC
--- NOTE | 2017-04-19 13:08 | REP ---
HIDA SCAN WITH GALLBLADDER EJECTION FRACTION: Following the intravenous administration of 6.6 mCi of technetium-99m mebrofenin, multiple images of the right upper quadrant are performed every 5 minutes for a period of 1 hour. Gallbladder is visualized at 10 minutes post injection. There is biliary to bowel transit at 15 minutes post injection with no scintigraphic evidence of cholecystitis. At the 1 hour mehdi 8 ounces of Ensure Enlive was ingested and further imaging performed for 1 hour. Gallbladder activity is measured and the gallbladder ejection fraction is calculated to be 60% which was normal. IMPRESSION: No gallbladder ejection fraction. No scintigraphic evidence of cholecystitis. Signed by Servando Saeed MD 04/19/2017 03:31 P
== END ==
LOC: M RAD 08:36
PROVIDERS: ATTEND Physician Assistant
DX: R10.11 Right upper quadrant pain (principal)

== ENCOUNTER → 2017-06-15 | Outpatient (CLI) | payer OTHER ==
[2017-06-15 17:22] LABS: BASO % 0.4 % (0.0-1.0); EOS # 0.1 K/mm3 (0.0-0.50); EOS % 1.8 % (0.0-3.0); LYMPH # 2.3 K/mm3 (1.5-6.5); LYMPH % 33.6 % (24.0-44.0); MEAN CORPUSCULAR HEMOGLOBIN 31.7 pg (27.0-33.0); MEAN CORPUSCULAR VOLUME 86.2 fl (80.0-96.0); MONO # 0.3 K/mm3 (0.0-0.8); MONO % 4.6 % (0.0-5.0); NEUTROPHILS % 57.2 % (36.0-66.0); RED CELL DISTRIBUTION WIDTH 11.3 % (11.5-14.5)
[2017-06-15 17:38] LABS: MEAN CORPUSCULAR HGB CONC 36.8 g/dl (32.0-36.5)
[2017-06-15 19:32] LABS: ALBUMIN 4.3 GM/DL (3.2-5.2); ALKALINE PHOSPHATASE 101 U/L (45-117); ALT/SGPT 25 U/L (12-78); ANION GAP 11 MEQ/L (8-16); AST/SGOT 9 U/L (15-37); BILIRUBIN,TOTAL 0.6 MG/DL (0.2-1.0); BLOOD UREA NITROGEN 14 MG/DL (7-18); CALCIUM LEVEL 9.7 MG/DL (8.5-10.1); CARBON DIOXIDE LEVEL 24 MEQ/L (21-32); CHLORIDE LEVEL 103 MEQ/L (98-107); CHOLESTEROL LEVEL 162 MG/DL (<200); CREATININE FOR GFR 1.05 MG/DL (0.70-1.30); FREE T4 1.36 NG/DL (0.76-1.46); GLOMERULAR FILTRATION RATE > 60.0 (>60); GLUCOSE, FASTING 273 MG/DL (70-105); POTASSIUM SERUM 4.1 MEQ/L (3.5-5.1); SODIUM LEVEL 138 MEQ/L (136-145); TOTAL PROTEIN 7.6 GM/DL (6.4-8.2); TRIGLYCERIDES LEVEL 96 MG/DL (<150)
[2017-06-15 19:48] LABS: VITAMIN B12 LEVEL 665 PG/ML (247-911)
[2017-06-15 19:49] LABS: FOLATE 21.4 NG/ML (>5.4)
== END ==
LOC: M LAB 16:13
PROVIDERS: ATTEND Physician Assistant
DX: Z00.01 Encounter for general adult medical examination with abnormal findings (principal)

== ENCOUNTER 2017-06-26 17:17 | Emergency (ER) | payer OTHER ==
[~2017-06-26] VITALS: Ht 175.3 cm; Wt 69.1 kg
[~2017-06-26 17:17] MED LIST changes: -METF500T13 PO; -ZOLO100T PO; -tujeo SC
[2017-06-26] MEDS ORDERED: ZOLO100T PO (17:32)
[2017-06-26] MEDS ORDERED: METF500T13 PO (17:32)
[2017-06-26] MEDS ORDERED: tujeo SC (17:32)
[2017-06-26 18:44] LABS: MEAN CORPUSCULAR HEMOGLOBIN 30.1 pg (27.0-33.0); MEAN CORPUSCULAR HGB CONC 35.3 g/dl (32.0-36.5); MEAN CORPUSCULAR VOLUME 85.4 fl (80.0-96.0)
[2017-06-26 19:08] LABS: METHADONE URINE NEGATIVE (NEGATIVE)
[2017-06-26 19:18] LABS: ALBUMIN 4.7 GM/DL (3.2-5.2); ALBUMIN/GLOBULIN RATIO 1.34 (1.00-1.93); ALKALINE PHOSPHATASE 111 U/L (45-117); ALT/SGPT 24 U/L (12-78); ANION GAP 7 MEQ/L (8-16); AST/SGOT 6 U/L (15-37); BILIRUBIN,DIRECT 0.2 MG/DL (0.0-0.2); BILIRUBIN,TOTAL 0.5 MG/DL (0.2-1.0); BLOOD UREA NITROGEN 14 MG/DL (7-18); CALCIUM LEVEL 9.8 MG/DL (8.5-10.1); CARBON DIOXIDE LEVEL 27 MEQ/L (21-32); CHLORIDE LEVEL 105 MEQ/L (98-107); CREATININE FOR GFR 0.83 MG/DL (0.70-1.30); GLOMERULAR FILTRATION RATE > 60.0 (>60); GLUCOSE, FASTING 181 MG/DL (70-105); POTASSIUM SERUM 3.8 MEQ/L (3.5-5.1); SODIUM LEVEL 139 MEQ/L (136-145); TOTAL PROTEIN 8.2 GM/DL (6.4-8.2)
[2017-06-26 20:36] VITALS: BP 120/81
== END 2017-06-26 20:37 | disposition home or self-care (01) ==
LOC: M ED 17:17
DX: Z04.6 Encounter for general psychiatric examination, requested by authority (principal); F43.0 Acute stress reaction; I51.9 Heart disease, unspecified; E11.9 Type 2 diabetes mellitus without complications; F99 Mental disorder, not otherwise specified; Z79.84 Long term (current) use of oral hypoglycemic drugs; Z79.899 Other long term (current) drug therapy

== ENCOUNTER 2018-05-23 09:45 | Emergency (ER) | payer OTHER ==
[2018-05-23 10:10] LABS: BEDSIDE GLUCOSE 171 MG/DL (70-105)
[2018-05-23 10:42] LABS: VENOUS BASE EXCESS 0.4 (-2.0-2.0); VENOUS HCO3 20.2 MEQ/L (23.0-27.0); VENOUS O2 SATURATION 83.2 % (60.0-80.0); VENOUS PARTIAL PRESSURE CO2 23.5 mmHg (38.0-50.0); VENOUS PARTIAL PRESSURE O2 42.7 mmHg (30.0-50.0); VENOUS PH 7.552 UNITS (7.330-7.430); VENOUS STANDARD HCO3 24.4 MEQ/L; VENOUS TOTAL CO2 20.9 MEQ/L (24.0-28.0)
[2018-05-23] MEDS: MORPHINE 4 MG/ML 1ML VIAL/SYRINGE (J2270) IV ×4 (10:42→12:49)
[2018-05-23] MEDS: ONDANSETRON 4MG/2ML VIAL (J2405) IV ×2 (10:42)
[2018-05-23 10:43] LABS: BASO % 0.3 % (0.0-1.0); EOS % 0.2 % (0.0-3.0); HEMATOCRIT 48.5 % (42.0-52.0); HEMOGLOBIN 17.3 g/dl (13.5-17.5); LYMPH % 17.3 % (24.0-44.0); MEAN CORPUSCULAR HEMOGLOBIN 29.8 pg (27.0-33.0); MEAN CORPUSCULAR HGB CONC 35.7 g/dl (32.0-36.5); MEAN CORPUSCULAR VOLUME 83.6 fl (80.0-96.0); MONO # 0.9 10^3/uL (0.0-0.8); MONO % 7.4 % (0.0-5.0); NEUTROPHILS # 8.5 10^3/uL (1.8-7.7); NEUTROPHILS % 73.8 % (36.0-66.0); PLATELET COUNT, AUTOMATED 275 10^3/uL (150-450); RED CELL DISTRIBUTION WIDTH 11.8 % (11.5-14.5); WHITE BLOOD COUNT 11.5 10^3/uL (4.0-10.0)
[2018-05-23] MEDS: NS 1,000 ML IV ×2 (10:43)
[2018-05-23 11:00] LABS: ESTIMATED AVERAGE GLUCOSE 192 MG/DL (60-110); HEMOGLOBIN A1c 8.3 %
[2018-05-23 11:11] LABS: KETONE, URINE AUTO RFX 2+ mg/dL (NEGATIVE); MUCUS, URINE RFX SMALL (NEGATIVE); NITRITE, URINE AUTO RFX NEGATIVE (NEGATIVE); RBC, URINE AUTO RFX TNTC /HPF (0-3); SPECIFIC GRAVITY UR AUTO RFX 1.024 (1.002-1.035); SQUAM EPITHELIAL CELL UR AURFX 1 /HPF (0-6); WBC, URINE AUTO RFX 6 /HPF (0-3)
[2018-05-23 11:29] LABS: LEUKOCYTE ESTERASE UR AUTO RFX TRACE (NEGATIVE)
[2018-05-23 11:39] LABS: ALBUMIN 4.5 GM/DL (3.2-5.2); ALBUMIN/GLOBULIN RATIO 1.25 (1.00-1.93); ALKALINE PHOSPHATASE 74 U/L (45-117); ALT/SGPT 17 U/L (12-78); ANION GAP 13 MEQ/L (8-16); AST/SGOT 15 U/L (7-37); BILIRUBIN,DIRECT 0.3 MG/DL (0.0-0.2); BILIRUBIN,TOTAL 1.2 MG/DL (0.2-1.0); BLOOD UREA NITROGEN 28 MG/DL (7-18); CALCIUM LEVEL 9.3 MG/DL (8.5-10.1); CARBON DIOXIDE LEVEL 25 MEQ/L (21-32); CHLORIDE LEVEL 102 MEQ/L (98-107); CREATININE FOR GFR 1.28 MG/DL (0.70-1.30); GLOMERULAR FILTRATION RATE > 60.0 (>60); GLUCOSE, FASTING 149 MG/DL (70-100); LIPASE 59 U/L (73-393); POTASSIUM SERUM 3.2 MEQ/L (3.5-5.1); SODIUM LEVEL 140 MEQ/L (136-145); TOTAL PROTEIN 8.1 GM/DL (6.4-8.2)
[2018-05-23 11:40] LABS: LACTIC ACID SEPSIS PROTOCOL 1.5 MMOL/L (0.4-2.0)
[2018-05-23] MEDS ORDERED: ISOVUE-370 76% 100ML VIAL (Q9967) As Ordered ×2 (11:45)
[2018-05-23] MEDS: PROMETHAZINE 25 MG TAB PO ×2 (12:46)
[2018-05-23] MEDS: GI COCKTAIL 50ML BTL(HYOSCYAMINE/MAALOX/LIDOCAINE VISCOUS)(1:3:1) PO ×2 (12:48)
[2018-05-23] MEDS: PANTOPRAZOLE 40MG INJ (PROTONIX) (C9113) IV ×2 (12:48)
== END 2018-05-23 13:34 | disposition home or self-care (01) ==
LOC: M ED 09:45
DX: K52.9 Noninfective gastroenteritis and colitis, unspecified (principal); E11.9 Type 2 diabetes mellitus without complications; Z79.84 Long term (current) use of oral hypoglycemic drugs
CPT/HCPCS: C9113

== ENCOUNTER → 2019-02-15 | Outpatient (REF) | payer OTHER ==
[~2019-02-15] MED LIST changes: +AZIT500T2 PO; +FLAG500T PO; +HYDR-3715 PO; +METF500T13 PO; +ZOFR4TAB14 PO; +ZOLO100T PO; +tujeo SC
[2019-02-15 16:26] LABS: APPEARANCE, URINE CLEAR (CLEAR); BACTERIA, URINE AUTO NEGATIVE (NEGATIVE); BILIRUBIN, URINE AUTO NEGATIVE (NEGATIVE); BLOOD, URINE BLOOD NEGATIVE (NEGATIVE); COLOR, URINE STRAW (YELLOW); GLUCOSE, URINE (UA) AUTO 3+ mg/dL (NEGATIVE); KETONE, URINE AUTO NEGATIVE (NEGATIVE); LEUKOCYTE ESTERASE, URINE AUTO NEGATIVE (NEGATIVE); NITRITE, URINE AUTO NEGATIVE (NEGATIVE); PROTEIN, URINE AUTO NEGATIVE (NEGATIVE); RBC, URINE AUTO 2 /HPF (0-3); SPECIFIC GRAVITY URINE AUTO 1.032 (1.002-1.035); SQUAMOUS EPITHELIAL CELL UR AU 0 /HPF (0-6); UROBILINOGEN, URINE AUTO 0.2 mg/dL (0.0-2.0); WBC, URINE AUTO 0 /HPF (0-3)
[2019-02-15 16:27] LABS: BASO % 0.3 % (0.0-1.0); EOS # 0.1 10^3/uL (0.0-0.50); EOS % 1.4 % (0.0-3.0); HEMATOCRIT 43.1 % (42.0-52.0); HEMOGLOBIN 15.5 g/dl (13.5-17.5); LYMPH % 23.7 % (24.0-44.0); MEAN CORPUSCULAR HEMOGLOBIN 31.4 pg (27.0-33.0); MEAN CORPUSCULAR VOLUME 87.2 fl (80.0-96.0); MONO # 0.7 10^3/uL (0.0-0.8); MONO % 7.8 % (0.0-5.0); NEUTROPHILS # 5.7 10^3/uL (1.8-7.7); NEUTROPHILS % 66.5 % (36.0-66.0); PLATELET COUNT, AUTOMATED 200 10^3/uL (150-450); RED BLOOD COUNT 4.94 10^6/uL (4.30-6.10); WHITE BLOOD COUNT 8.6 10^3/uL (4.0-10.0)
[2019-02-15 16:55] LABS: CREATININE, URINE 31.1 MG/DL; MALB URINE SIEMENS < 5.0 MG/L
[2019-02-15 17:18] LABS: ALBUMIN 4.3 GM/DL (3.2-5.2); ALT/SGPT 29 U/L (12-78); BILIRUBIN,TOTAL 0.5 MG/DL (0.2-1.0); BLOOD UREA NITROGEN 14 MG/DL (7-18); CALCIUM LEVEL 9.5 MG/DL (8.5-10.1); CARBON DIOXIDE LEVEL 30 MEQ/L (21-32); CHLORIDE LEVEL 96 MEQ/L (98-107); CHOLESTEROL LEVEL 153 MG/DL (< 200); CREATININE FOR GFR 1.02 MG/DL (0.70-1.30); GLOMERULAR FILTRATION RATE > 60.0 (>60); GLUCOSE, FASTING 493 MG/DL (70-100); POTASSIUM SERUM 3.9 MEQ/L (3.5-5.1); SODIUM LEVEL 133 MEQ/L (136-145); TRIGLYCERIDES LEVEL 127 MG/DL (<150)
[2019-02-15 18:22] LABS: HEMOGLOBIN A1c 13.8 %
[2019-02-16 10:34] LABS: HEPATITIS B SURFACE ANTIBODY NEGATIVE (POSITIVE)
[2019-02-16 10:44] LABS: HEPATITIS B SURFACE ANTIGEN NEGATIVE (NEGATIVE)
[2019-02-16 11:13] LABS: HIV 1&2 SCREEN CENTAUR NEGATIVE (NEGATIVE)
== END ==
LOC: M SFHCPLAZ 14:21
DX: E11.9 Type 2 diabetes mellitus without complications (principal); Z00.00 Encounter for general adult medical examination without abnormal findings; L81.8 Other specified disorders of pigmentation

== ENCOUNTER 2019-02-27 12:59 | Emergency (ER) | payer MEDICAID, OTHER, SELFPAY ==
[~2019-02-27] VITALS: Ht 175.3 cm; Wt 68.3 kg
[2019-02-27] MEDS ORDERED: NS 1,000 ML IV ONE (13:45)
[2019-02-27 14:13] LABS: HEMATOCRIT 46.9 % (42.0-52.0); HEMOGLOBIN 17.1 g/dl (13.5-17.5); MEAN CORPUSCULAR HEMOGLOBIN 30.7 pg (27.0-33.0); MEAN CORPUSCULAR HGB CONC 36.5 g/dl (32.0-36.5); MEAN CORPUSCULAR VOLUME 84.2 fl (80.0-96.0); PLATELET COUNT, AUTOMATED 199 10^3/uL (150-450); RED BLOOD COUNT 5.57 10^6/uL (4.30-6.10); WHITE BLOOD COUNT 5.8 10^3/uL (4.0-10.0)
--- NOTE | 2019-02-27 14:18 | REP ---
CHEST: Two views. There is no evidence of acute infiltrate. No pleural effusion is seen. The heart is normal in size. The mediastinal silhouette is unremarkable. The visualized osseous structures are intact. Metallic clips are seen in the region of the superior mediastinum. There is an old, healed fracture of the left clavicle. IMPRESSION: No acute pulmonary disease. Electronically Signed by Servando Saeed MD 03/01/2019 08:36 A
[2019-02-27] MEDS ORDERED: GABA-845 PO (14:23)
[2019-02-27] MEDS ORDERED: ONDANSETRON 4MG/2ML VIAL (J2405) IV ONE (14:30)
[2019-02-27] MEDS ORDERED: metFORMIN (GLUCOPHAGE) 500 MG TAB PO ONE (14:30)
[2019-02-27 14:41] LABS: ALBUMIN 4.6 GM/DL (3.2-5.2); ALT/SGPT 51 U/L (12-78); BILIRUBIN,DIRECT 0.1 MG/DL (0.0-0.2); BILIRUBIN,TOTAL 0.6 MG/DL (0.2-1.0); CPK CREATINE PHOSPHOKINASE 50 U/L (39-308); LIPASE 114 U/L (73-393); MAGNESIUM LEVEL 2.3 MG/DL (1.8-2.4); NT-PRO BNP 21 PG/ML (<125); THYROID STIMULATING HORMONE 0.825 uIU/ML (0.358-3.740); TROPONIN I < 0.02 NG/ML (< 0.10)
[2019-02-27 14:47] LABS: INFLUENZA A AMPLIFICATION NEGATIVE (NEGATIVE); INFLUENZA B AMPLIFICATION NEGATIVE (NEGATIVE)
[2019-02-27] MEDS ORDERED: HumaLOG INSULIN (NovoLOG) PER UNIT SC STA (14:57)
[2019-02-27 15:03] LABS: ABG BASE EXCESS -2.7 (-2.0-2.0); ABG HCO3 19.1 MEQ/L (22.0-26.0); ABG PARTIAL PRESSURE CO2 26.9 mmHg (35.0-45.0); ABG PARTIAL PRESSURE O2 99.5 mmHg (75.0-100.0); ABG STANDARD HCO3 22.3 MEQ/L (22.0-26.0)
[2019-02-27 16:41] VITALS: BP 128/84
--- NOTE | 2019-02-28 07:46 | ECGEPIP ---
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
== END 2019-02-27 17:13 | disposition home or self-care (01) ==
LOC: M ED 12:59
DX: E11.65 Type 2 diabetes mellitus with hyperglycemia (principal); R11.2 Nausea with vomiting, unspecified; R01.1 Cardiac murmur, unspecified; Q25.0 Patent ductus arteriosus; F41.9 Anxiety disorder, unspecified; F32.9 Major depressive disorder, single episode, unspecified; F43.10 Post-traumatic stress disorder, unspecified; F42.9 Obsessive-compulsive disorder, unspecified; M54.9 Dorsalgia, unspecified; F63.81 Intermittent explosive disorder; K29.70 Gastritis, unspecified, without bleeding; Z77.098 Contact with and (suspected) exposure to other hazardous, chiefly nonmedicinal, chemicals; Z79.4 Long term (current) use of insulin; Z91.120 Patient's intentional underdosing of medication regimen due to financial hardship
CPT/HCPCS: 36600; 71046; 80047; 80076; 81001; 82550; 82553; 82803; 83690; 83735; 83880; 84443; 85027; 87631; 87880; 93005; 96361; 96374; 99284; J2405

== ENCOUNTER 2021-07-21 12:51 | Emergency (ER) | payer MEDICAID ==
[~2021-07-21] VITALS: Ht 175.3 cm; Wt 70.0 kg
[~2021-07-21 12:51] MED LIST changes: -AZIT500T2 PO; +AZIT500T5 PO; +GABA-283 PO; -GLIM2TAB PO; +GLIM2TAB4 PO; -LISI-538 PO; +LISI20TA33 PO; -METF750T PO; +METF750T36 PO
[2021-07-21 12:52] VITALS: BP 108/67
--- OUTSIDE RECORDS SUMMARY | 2021-07-21 12:59 | CCD ---
Author Author [facility] Organization [facility] Address Unknown Phone Unavailable Support Name Relationship Address Phone VANESSA GARVEY Next Of Kin Unknown UE Next Of Kin Unknown Unavailable ST Next Of Kin Unknown Unavailable DREW VERDUZCO Next Of Kin [address] [place] [address] Re-disclosure Warning The records that you are about to access may contain information from federally-assisted alcohol or drug abuse programs. If such information is present, then the following federally mandated warning applies: This information has been disclosed to you from records protected by federal confidentiality rules (42 CFR part 2). The federal rules prohibit you from making any further disclosure of this information unless further disclosure is expressly permitted by the written consent of the person to whom it pertains or as otherwise permitted by 42 CFR part 2. A general authorization for the release of medical or other information is NOT sufficient for this purpose. The Federal rules restrict any use of the information to criminally investigate or prosecute any alcohol or drug abuse patient.The records that you are about to access may contain highly sensitive health information, the redisclosure of which is protected by Article 27-F of the [facility] Public Health law. If you continue you may have access to information: Regarding HIV / AIDS; Provided by facilities licensed or operated by the [facility] Office of Mental Health; or Provided by the [facility] Office for People With Developmental Disabilities. If such information is present, then the following [facility] mandated warning applies: This information has been disclosed to you from confidential records which are protected by state law. State law prohibits you from making any further disclosure of this information without the specific written consent of the person to whom it pertains, or as otherwise permitted by law. Any unauthorized further disclosure in violation of state law may result in a fine or prison sentence or both. A general authorization for the release of medical or other information is NOT sufficient authorization for further disc losure. Family History Family Member Name Family Member Gender Family Member Status Date o f Status Description Data Source(s) Unknown Male Problem MEDENT ([facility]) Medications No Information Insurance Providers Payer name Policy type / Coverage type Policy ID Covered democrat ID Covered democrat's relationship to courtney Policy Courtney Plan Information [facility] COMMUNITY PLAN MCDO [id number] SP [id number] [id number] SP [id number] [facility] COMMUNITY PLAN [facility] [id number] SP [id number] [facility] O [id number] S [id number] [facility] COMMUNTY PLAN [id number] 18 [id number] [facility] Communty Plan Medicaid [id number] 2.16.840.1.813743.3.227.99.51 0.8914.0 Self [id number] [facility] Communty Plan Medicaid [id number] 2.16840.1.202154.3.227.99.51 0.8914.0 Self [id number] [facility] COMMUNITY PLAN XIX [id number] 18 [id number] [facility] AMERICHOICE XIX -O [id number] 18 [id number] [facility] Communty Plan Medicaid [id number] 2.16840.1.512938.3.227.99.51 0.8914.0 Self [id number] [facility] COMMUNITY PLAN [id number] 18 [id number] [facility] Community Plan Commercial [id number] 2.16.840.1 .119384.3.227.99.510.8914.0 Self [id number] [facility] Communty Plan Medicaid [id number] 2.16.840.1.540597.3.227.99.51 0.8914.0 Self [id number] [facility] [place]ITY [place] [id number] 18 [id number] [facility] Communty Plan Medicaid [id number] 2.16.840.1.624474.3.227.99.51 0.8914.0 Self [id number] [facility] Community Plan Commercial [id number] 2.16.840.1 .440779.3.227.99.510.8914.0 Self [id number] [facility] Community Plan Medicaid [id number] 2.16.840.1.740525.3.2 27.99.510.8914.0 Self [id number] [facility] Commercial [id number] 2.16.840.1.025036.3.227.99.510.8914.0 Self [id number] [facility] [id number] 18 [id number] [facility] Community Plan Medicaid [id number] 2.16.840.1.709284.3.2 27.99.510.8914.0 Self [id number] [facility] Commercial [id number] 2.16.840.1.522184.3.227.99.510.8914.0 Self [id number] [facility] Community Plan Medicaid [id number] 2.16.840.1.831097.3.2 27.99.510.8914.0 Self [id number] [facility] Commercial [id number] 2.16.840.1.288404.3.227.99.510.8914.0 Self [id number] [facility] Community Plan Medicaid [id number] 2.16.840.1.702249.3.2 27.99.510.8914.0 Self [id number] [facility] Community Plan Medicaid [id number] 2.16.840.1.218195.3.2 27.99.510.8914.0 Self [id number] [facility] Community Plan Medicaid 2.16.840.1.360570.3.227.99.510 .8914.0 Self MEDICAID [id number] SP [id number] [facility] [id number] 18 [id number] SELF PAY ONLY [id number] SP [id number] Problems, Conditions, and Diagnoses No Information Surgeries/Procedures No Information Results No Information Social History No Information
[2021-07-21] MEDS ORDERED: PROTPAK PO (13:04)
[2021-07-21] MEDS ORDERED: LANTINJ4 SC (13:04)
[2021-07-21] MEDS ORDERED: HUMA100I3 SC (13:04)
[2021-07-21] MEDS ORDERED: CARB20TA PO (13:04)
--- OUTSIDE RECORDS SUMMARY | 2021-07-21 14:35 | CCD ---
Author Author [facility] Organization [facility] Address Unknown Phone Unavailable Support Name Relationship Address Phone VANESSA GARVEY Next Of Kin Unknown UE Next Of Kin Unknown Unavailable ST Next Of Kin Unknown Unavailable DREW VERDUZCO Next Of Kin [address] [place] [address] Re-disclosure Warning The records that [...] is protected by Article 27-F of the [facility] Public Health law. If you continue you may have access to information: Regarding HIV / AIDS; Provided by facilities licensed or operated by the [facility] Office of Mental Health; or Provided by the [facility] Office for People With Developmental Disabilities. If such information is present, then the following [facility] mandated warning applies: This information has been [...] law may result in a fine or long term sentence or both. A general authorization for the release of medical or other information is NOT sufficient authorization for further disc losure. Family History Family Member Name Family Member Gender Family Member Status Date o f Status Description Data Source(s) Unknown Male Problem MEDENT ([facility]) Medications No Information Insurance Providers Payer name Policy type / Coverage type Policy ID Covered democrat ID Covered democrat's relationship to courtney Policy Courtney Plan Information [facility] COMMUNITY PLAN MCDO [id number] SP [id number] HC COMMUNITY PLAN MCDO [id number] SP [id number] SELF PAY ONLY [id number] SP [id number] [facility] COMMUNITY PLAN MCDO [id number] SP [id number] [facility] O [id number] S [id number] [facility] COMMUNTY PLAN [id number] 18 [id number] [facility] Communty Plan Medicaid [id number] 2.840.1.608442.3.227.99.51 0.8914.0 Self [id number] [facility] Communty Plan Medicaid [id number] 2.840.1.348003.3.227.99.51 0.8914.0 Self [id number] [facility] COMMUNITY PLAN XIX [id number] 18 [id number] [facility] AMERICHOICE XIX -HMO [id number] 18 [id number] [facility] Communty Plan Medicaid [id number] 2.840.1.147079.3.227.99.51 0.8914.0 Self [id number] [facility] COMMUNITY PLAN [id number] 18 [id number] [facility] Community Plan Commercial [id number] 2.16840.1 .086273.3.227.99.510.8914.0 Self [id number] [facility] Communty Plan Medicaid [id number] 2.16840.1.160709.3.227.99.51 0.8914.0 Self [id number] [facility] COMMUNITY PLAN [place] [id number] 18 [id number] [facility] Commun[facility] Plan Medicaid [id number] 2.16840.1.732769.3.227.99.51 0.8914.0 Self [id number] [facility] Community Plan Commercial [id number] 2.16840.1 .825332.3.227.99.510.8914.0 Self [id number] Un Community Plan Medicaid [id number] 2.16.840.1.902177.3.2 27.99.510.8914.0 Self [id number] [facility] [id number] 2.16.840.1.885508.3.227.99.510.8914.0 Self [id number] [facility] [id number] 18 [id number] [facility] Community Plan Medicaid [id number] 2.16.840.1.278828.3.2 27.99.510.8914.0 Self [id number] [facility] [id number] 2.16.840.1.066486.3.227.99.510.8914.0 Self 10 [id number] [facility] Community Plan Medicaid [id number] 2.16.840.1.492607.3.2 27.99.510.8914.0 Self [id number] [facility] [id number] 2.16.840.1.174155.3.227.99.510.8914.0 Self [id number] Un Community Plan Medicaid [id number] 2.16.840.1.768666.3.2 27.99.510.8914.0 Self [id number] Un Community Plan Medicaid [id number] 2.16.840.1.920789.3.2 27.99.510.8914.0 Self [id number] [facility] Community Plan Medicaid 2.16.840.1.978442.3.227.99.510 .8914.0 Self [place] [id number] SP [id number] [id number] 18 [id number] MEDICAID [id number] SP [id number] Problems, Conditions, and Diagnoses No Information Surgeries/Procedures No Information Results No Information Social History No Information
== END 2021-07-21 14:17 | disposition left against medical advice (07) ==
LOC: M ED 12:51
DX: Z53.21 Procedure and treatment not carried out due to patient leaving prior to being seen by health care provider (principal)

== ENCOUNTER 2021-08-23 17:04 | Emergency (ER) | payer MEDICAID ==
[~2021-08-23] VITALS: Ht 175.3 cm; Wt 71.8 kg
[2021-08-23 17:04] VITALS: BP 117/81
[~2021-08-23 17:04] MED LIST changes: +CARB20TA PO; +HUMA100I3 SC; +LANTINJ4 SC; +PROTPAK PO
--- OUTSIDE RECORDS SUMMARY | 2021-08-23 17:09 | CCD ---
Author Author [facility] Organization [facility] Address Unknown Phone Unavailable Support Name Relationship Address Phone VANESSA GARVEY Next Of Kin Unknown UE Next Of Kin Unknown Unavailable ST Next Of Kin Unknown Unavailable DRWE VERDUZCO Next Of Kin [address] [place] [address] Re-disclosure Warning The records that [...] is protected by Article 27-F of the [facility] Public Health law. If you continue you may have access to information: Regarding HIV / AIDS; Provided by facilities licensed or operated by the [facility] Office of Mental Health; or Provided by the [facility] Office for People With Developmental Disabilities. If such information is present, then the following [facility] mandated warning applies: This information [...] law may result in a fine or snf sentence or both. A general authorization for the release of medical or other information is NOT sufficient authorization for further disc losure. Family History Family Member Name Family Member Gender Family Member Status Date o f Status Description Data Source(s) Unknown Male Problem MEDENT ([facility]) Medications No Information Insurance Providers Payer name Policy type / Coverage type Policy ID Covered alliance party ID Covered alliance party's relationship to courtney Policy Courtney Plan Information [facility] COMMUNITY PLAN MCDO [id number] SP [id number] HC COMMUNITY PLAN MCDO [id number] SP [id number] SELF PAY ONLY [id number] SP [id number] [facility] COMMUNITY PLAN MCDO [id number] SP [id number] [facility] O [id number] S [id number] [facility] COMMUNTY PLAN [id number] 18 [id number] [facility] Communty Plan Medicaid [id number] 2.840.1.886899.3.227.99.51 0.8914.0 Self [id number] [facility] Communty Plan Medicaid [id number] 2.840.1.723002.3.227.99.51 0.8914.0 Self [id number] [facility] COMMUNITY PLAN XIX [id number] 18 [id number] [facility] AMERICHOICE XIX -HMO [id number] 18 [id number] [facility] Communty Plan Medicaid [id number] 2.840.1.823245.3.227.99.51 0.8914.0 Self [id number] [facility] COMMUNITY PLAN [id number] 18 [id number] [facility] Community Plan Commercial [id number] 2.16840.1 .546133.3.227.99.510.8914.0 Self [id number] [facility] Communty Plan Medicaid [id number] 2.16840.1.292477.3.227.99.51 0.8914.0 Self [id number] [facility] COMMUNITY PLAN [place] [id number] 18 [id number] [facility] Communty Plan Medicaid [id number] 2.16840.1.243315.3.227.99.51 0.8914.0 Self [id number] [facility] Community Plan Commercial [id number] 2.16840.1 .805420.3.227.99.510.8914.0 Self [id number] Un Community Plan Medicaid [id number] 2.16.840.1.762643.3.2 27.99.510.8914.0 Self [id number] [facility] SIPX [id number] 2.16.840.1.786119.3.227.99.510.8914.0 Self [id number] [facility] [id number] 18 [id number] [facility] Community Plan Medicaid [id number] 2.16.840.1.619041.3.2 27.99.510.8914.0 Self [id number] [facility] SIPX [id number] 2.16.840.1.361535.3.227.99.510.8914.0 Self [id number] [facility] Community Plan Medicaid [id number] 2.16.840.1.862851.3.2 27.99.510.8914.0 Self [id number] [facility] SIPX [id number] 2.16.840.1.866226.3.227.99.510.8914.0 Self [id number] Un Community Plan Medicaid [id number] 2.16.840.1.127621.3.2 27.99.510.8914.0 Self [id number] Un Community Plan Medicaid [id number] 2.16.840.1.195928.3.2 27.99.510.8914.0 Self [id number] [facility] Community Plan Medicaid 2.16.840.1.984216.3.227.99.510 .8914.0 Self [place] [id number] SP [id number] [facility] [id number] 18 [id number] MEDICAID [id number] SP [id number] Problems, Conditions, and Diagnoses No Information Surgeries/Procedures No Information Results No Information Social History No Information
--- OUTSIDE RECORDS SUMMARY | 2021-08-23 18:31 | CCD ---
Author Author [facility] Organization [facility] Address Unknown Phone Unavailable Support Name Relationship Address Phone VANESSA GARVEY Next Of Kin Unknown UE Next Of Kin Unknown Unavailable ST Next Of Kin Unknown Unavailable DREW VERDUZCO Next Of Kin [address] [place] [address] Re-disclosure Warning The records that [...] is protected by Article 27-F of the [facility] Public Health law. If you continue you may have access to information: Regarding HIV / AIDS; Provided by facilities licensed or operated by the [facility] Office of Mental Health; or Provided by the [facility] Office for People With Developmental Disabilities. If such information is present, then the following [facility] mandated warning applies: This information has [...] law may result in a fine or detention sentence or both. A general authorization for the release of medical or other information is NOT sufficient authorization for further disc losure. Family History Family Member Name Family Member Gender Family Member Status Date o f Status Description Data Source(s) Unknown Male Problem MEDENT ([facility]) Medications No Information Insurance Providers Payer name Policy type / Coverage type Policy ID Covered constitution party ID Covered constitution party's relationship to courtney Policy Courtney Plan Information [facility]HC COMMUNITY PLAN MCDO [id number] SP [id number] HC COMMUNITY PLAN MCDO [id number] SP [id number] SELF PAY ONLY [id number] SP [id number] [facility] COMMUNITY PLAN MCDO [id number] SP [id number] [facility] O [id number] S [id number] [facility] COMMUNTY PLAN [id number] 18 [id number] [facility] Communty Plan Medicaid [id number] 2.840.1.738921.3.227.99.51 0.8914.0 Self [id number] [facility] Communty Plan Medicaid [id number] 2.840.1.040400.3.227.99.51 0.8914.0 Self [id number] [facility] COMMUNITY PLAN XIX [id number] 18 [id number] [facility] AMERICHOICE XIX -HMO [id number] 18 [id number] [facility] Communty Plan Medicaid [id number] 2.840.1.922883.3.227.99.51 0.8914.0 Self [id number] [facility] COMMUNITY PLAN [id number] 18 [id number] [facility] Community Plan Commercial [id number] 2.16840.1 .421383.3.227.99.510.8914.0 Self [id number] [facility] Communty Plan Medicaid [id number] 2.16840.1.422604.3.227.99.51 0.8914.0 Self [id number] [facility] COMMUNITY PLAN [place] [id number] 18 [id number] [facility] Communty Plan Medicaid [id number] 2.16840.1.955299.3.227.99.51 0.8914.0 Self [id number] [facility] Community Plan Commercial [id number] 2.16840.1 .224715.3.227.99.510.8914.0 Self [id number] Un Community Plan Medicaid [id number] 2.16.840.1.008593.3.2 27.99.510.8914.0 Self [id number] [facility] [id number] 2.16.840.1.028363.3.227.99.510.8914.0 Self [id number] [facility] [id number] 18 [id number] [facility] Community Plan Medicaid [id number] 2.16.840.1.377039.3.2 27.99.510.8914.0 Self [id number] [facility] [id number] 2.16.840.1.614549.3.227.99.510.8914.0 Self 10 [id number] [facility] Community Plan Medicaid [id number] 2.16.840.1.092018.3.2 27.99.510.8914.0 Self [id number] [facility] [id number] 2.16.840.1.496042.3.227.99.510.8914.0 Self 10 [id number] Un Community Plan Medicaid [id number] 2.16.840.1.915803.3.2 27.99.510.8914.0 Self [id number] Un Community Plan Medicaid [id number] 2.16.840.1.836623.3.2 27.99.510.8914.0 Self [id number] [facility] Community Plan Medicaid 2.16.840.1.209649.3.227.99.510 .8914.0 Self [place] [id number] SP [id number] J [facility] [id number] 18 [id number] MEDICAID [id number] SP [id number] Problems, Conditions, and Diagnoses No Information Surgeries/Procedures No Information Results No Information Social History No Information
[2021-08-24] MEDS ORDERED: PANT-23 PO (18:24)
== END 2021-08-23 18:09 | disposition left against medical advice (07) ==
LOC: M ED 17:04
DX: Z53.21 Procedure and treatment not carried out due to patient leaving prior to being seen by health care provider (principal)

== ENCOUNTER 2021-08-24 14:30 | Inpatient (IN) | payer MEDICAID, SELFPAY ==
[~2021-08-24] VITALS: Ht 175.3 cm; Wt 71.8 kg
--- OUTSIDE RECORDS SUMMARY | 2021-08-24 14:34 | CCD ---
Author Author [facility] Organization [facility] Address Unknown Phone Unavailable Support Name Relationship Address Phone VANESSA GARVEY Next Of Kin Unknown UE Next Of Kin Unknown Unavailable ST Next Of Kin Unknown Unavailable DREW VERDUZCO Next Of Kin [address] [place] [address] Re-disclosure Warning The records that [...] is protected by Article 27-F of the [facility] Public Health law. If you continue you may have access to information: Regarding HIV / AIDS; Provided by facilities licensed or operated by the [facility] Office of Mental Health; or Provided by the [facility] Office for People With Developmental Disabilities. If such information is present, then the following [facility] mandated warning applies: This information [...] law may result in a fine or half-way sentence or both. A general authorization for the release of medical or other information is NOT sufficient authorization for further disc losure. Family History Family Member Name Family Member Gender Family Member Status Date o f Status Description Data Source(s) Unknown Male Problem MEDENT ([facility]) Medications No Information Insurance Providers Payer name Policy type / Coverage type Policy ID Covered libertarian ID Covered libertarian's relationship to courtney Policy Courtney Plan Information [facility] COMMUNITY PLAN MCDO [id number] SP [id number] HC COMMUNITY PLAN MCDO [id number] SP [id number] SELF PAY ONLY [id number] SP [id number] [facility] COMMUNITY PLAN MCDO [id number] SP [id number] [facility] O [id number] S [id number] [facility] COMMUNTY PLAN [id number] 18 [id number] [facility] Communty Plan Medicaid [id number] 2.840.1.833695.3.227.99.51 0.8914.0 Self [id number] [facility] Communty Plan Medicaid [id number] 2.840.1.523325.3.227.99.51 0.8914.0 Self [id number] [facility] COMMUNITY PLAN XIX [id number] 18 [id number] [facility] AMERICHOICE XIX -HMO [id number] 18 [id number] [facility] Communty Plan Medicaid [id number] 2.840.1.574127.3.227.99.51 0.8914.0 Self [id number] [facility] COMMUNITY PLAN [id number] 18 [id number] [facility] Community Plan Commercial [id number] 2.16840.1 .707391.3.227.99.510.8914.0 Self [id number] [facility] Communty Plan Medicaid [id number] 2.16840.1.869562.3.227.99.51 0.8914.0 Self [id number] [facility] COMMUNITY PLAN [place] [id number] 18 [id number] [facility] Communty Plan Medicaid [id number] 2.16840.1.967614.3.227.99.51 0.8914.0 Self [id number] [facility] Community Plan Commercial [id number] 2.16840.1 .508883.3.227.99.510.8914.0 Self [id number] Un Community Plan Medicaid [id number] 2.16.840.1.780689.3.2 27.99.510.8914.0 Self [id number] [facility] [employer] [id number] 2.16.840.1.411445.3.227.99.510.8914.0 Self [id number] [facility] [id number] 18 [id number] [facility] Community Plan Medicaid [id number] 2.16.840.1.887368.3.2 27.99.510.8914.0 Self [id number] [facility] [employer] [id number] 2.16.840.1.802576.3.227.99.510.8914.0 Self [id number] [facility] Community Plan Medicaid [id number] 2.16.840.1.297766.3.2 27.99.510.8914.0 Self [id number] [facility] [employer] [id number] 2.16.840.1.850740.3.227.99.510.8914.0 Self 10 [id number] Un Community Plan Medicaid [id number] 2.16.840.1.069864.3.2 27.99.510.8914.0 Self [id number] Un Community Plan Medicaid [id number] 2.16.840.1.839561.3.2 27.99.510.8914.0 Self [id number] [facility] Community Plan Medicaid 2.16.840.1.608618.3.227.99.510 .8914.0 Self [place] [id number] SP [id number] J [facility] [id number] 18 [id number] MEDICAID [id number] SP [id number] Problems, Conditions, and Diagnoses No Information Surgeries/Procedures No Information Results No Information Social History No Information
[2021-08-24] MEDS ORDERED: INSULIN IV RATE CHANGE DOCUMENTATION ML/HR XX SCH ×2 (15:10→17:40)
[2021-08-24] MEDS ORDERED: NS 1,000 ML IV ONE ×2 (15:10→17:50)
[2021-08-24] MEDS ORDERED: INSULIN REGULAR IN 0.9 % NACL 100 UNIT in IV 1 EA IV SCH ×4 (15:10→17:40)
[2021-08-24] MEDS ORDERED: ONDANSETRON 4MG/2ML VIAL IV ONE (15:45)
--- OUTSIDE RECORDS SUMMARY | 2021-08-24 16:05 | CCD ---
Author Author [facility] Address Unknown Phone Unavailable Support Name Relationship Address Phone VANESSA GARVEY Next Of Kin Unknown UE Next Of Kin Unknown Unavailable ST Next Of Kin Unknown Unavailable DREW VERDUZCO Next Of Kin [address] [place] [address] Re-disclosure Warning The records that [...] is protected by Article 27-F of the [facility] Public Health law. If you continue you may have access to information: Regarding HIV / AIDS; Provided by facilities licensed or operated by the [facility] Office of Mental Health; or Provided by the [facility] Office for People With Developmental Disabilities. If such information is present, then the following [facility] mandated warning applies: This information has [...] Description Data Source(s) Unknown Male Problem MEDENT ([facility]) Medications No Information Insurance Providers Payer name Policy type / Coverage type Policy ID Covered green party ID Covered green party's relationship to courtney Policy Courtney Plan Information [facility] [id number] [facility] [id number] SELF PAY ONLY [id number] SP [id number] [facility] COMMUNITY PLAN MCDO [id number] SP [id number] [facility] O [id number] S [id number] [facility] COMMUNTY PLAN [id number] 18 [id number] [facility] Communty Plan Medicaid [id number] 0.8914.0 Self [id number] [facility] Communty Plan Medicaid [id number] 0.8914.0 Self [id number] [facility] COMMUNITY PLAN XIX [id number] 18 [id number] [facility] AMERICHOICE XIX -O [id number] 18 [id number] [facility] Communty Plan Medicaid [id number] 0.8914.0 Self [id number] [facility] COMMUNITY PLAN [id number] 18 [id number] [facility] Community Plan Commercial [id number] Self [id number] [facility] Communty Plan Medicaid [id number] 0.8914.0 Self [id number] [facility] COMMUNITY PLAN [place] [id number] 18 [id number] [facility] Communty Plan Medicaid [id number] 0.8914.0 Self [id number] [facility] Community Plan Commercial [id number] Self [id number] [facility] Community Plan Medicaid [id number] Self [id number] [facility] [employer] [id number] Self [id number] [facility] [id number] 18 [id number] Un Community Plan Medicaid [id number] [id number] [id number] Self [id number] [facility] [employer] [id number] Self [id number] Un Community Plan Medicaid [id number] [id number] [id number] Self [id number] [facility] [employer] [id number] Self [id number] Un Community Plan Medicaid [id number] [id number] [id number] Self [id number] [facility] Community Plan Medicaid [id number] [id number] [id number] Self [id number] [facility] Community Plan Medicaid [id number] Self [place] [id number] SP [id number] J [facility] [id number] 18 [id number] MEDICAID [id number] SP [id number] Problems, Conditions, and Diagnoses No Information Surgeries/Procedures No Information Results No Information Social History No Information
[2021-08-24 16:26] LABS: VENOUS BASE EXCESS 4.6 (-2.0-2.0); VENOUS HCO3 26.1 MEQ/L (23.0-27.0); VENOUS O2 SATURATION 98.6 % (60.0-80.0); VENOUS PARTIAL PRESSURE CO2 30.7 mmHg (38.0-50.0); VENOUS PARTIAL PRESSURE O2 124.6 mmHg (30.0-50.0); VENOUS PH 7.548 UNITS (7.330-7.430); VENOUS STANDARD HCO3 28.6 MEQ/L; VENOUS TOTAL CO2 27.1 MEQ/L (24.0-28.0)
[2021-08-24 16:43] LABS: BASO % 0.1 % (0.0-1.0); HEMATOCRIT 44.8 % (42.0-52.0); HEMOGLOBIN 15.9 g/dl (13.5-17.5); LYMPH # 1.6 10^3/uL (1.5-5.0); LYMPH % 7.5 % (24.0-44.0); MEAN CORPUSCULAR HEMOGLOBIN 30.1 pg (27.0-33.0); MEAN CORPUSCULAR HGB CONC 35.5 g/dl (32.0-36.5); MEAN CORPUSCULAR VOLUME 84.7 fl (80.0-96.0); MONO # 1.7 10^3/uL (0.0-0.8); MONO % 7.7 % (2.0-8.0); NEUTROPHILS % 83.8 % (36.0-66.0); PLATELET COUNT, AUTOMATED 261 10^3/uL (150-450); RED BLOOD COUNT 5.29 10^6/uL (4.30-6.10); WHITE BLOOD COUNT 21.5 10^3/uL (4.0-10.0)
[2021-08-24 16:53] LABS: OSMOLALITY SERUM 307 MOSM/KG (275-295)
[2021-08-24 17:08] LABS: RSV AMPLIFICATION NEGATIVE (NEGATIVE)
[2021-08-24 17:09] LABS: HEMOGLOBIN A1c 11.1 %
[2021-08-24 17:12] LABS: ALT/SGPT 26 U/L (12-78); BLOOD UREA NITROGEN 22 MG/DL (7-18); CALCIUM LEVEL 9.7 MG/DL (8.5-10.1); CARBON DIOXIDE LEVEL 27 MEQ/L (21-32); CHLORIDE LEVEL 78 MEQ/L (98-107); CREATININE FOR GFR 1.26 MG/DL (0.70-1.30); GLOMERULAR FILTRATION RATE > 60.0 (>60); GLUCOSE, FASTING 588 MG/DL (70-100); POTASSIUM SERUM 3.5 MEQ/L (3.5-5.1); SODIUM LEVEL 127 MEQ/L (136-145)
[2021-08-24 17:13] LABS: ACETONE/KETONE > 46.00 MG/DL (<2.81); ALBUMIN 4.6 GM/DL (3.2-5.2); BILIRUBIN,DIRECT 0.3 MG/DL (0.0-0.2); BILIRUBIN,TOTAL 1.2 MG/DL (0.2-1.0); ETHYL ALCOHOL (ETHANOL) 0.003 % (0.000-0.010); LIPASE 67 U/L (73-393); TOTAL PROTEIN 8.6 GM/DL (6.4-8.2)
[2021-08-24] MEDS ORDERED: NS 1,000 ML IV SCH (17:40)
--- NOTE | 2021-08-24 18:02 | HPEPDOC ---
[facility] Medical History & Physical Date of Admission Aug 24, 2021 Date of Service: Aug 24, 2021 History and Physical CHIEF COMPLAINT: "I am in DKA" HISTORY OF PRESENT ILLNESS: 31-year-old male with a past medical history of insulin-dependent diabetes mellitus, bipolar disorder, depression presented emergency room department with complaints of nausea and vomiting. He began to experience the symptoms on 08/23 and came to the emergency room department but left due to long wait. He returns today with similar complaints and reporting that he is not taking his insulin due to this. At this junction, he complained of having chest pain in the substernal region and that he attributed it to his vomiting. In the emergency room department his work-up was consistent with DKA. He also tested for COVID- 19. He is saturating well on room air, he cannot recollect any exposure. He denies chills, change in appetite, loss of taste, loose stools, fever, and shortness of breath. PAST MEDICAL HISTORY: As mentioned above PAST SURGICAL HISTORY: Open heart surgery 1991 for repair of ? PDA SOCIAL HISTORY: Reports vaping every day, smoking marijuana. Denies use of alcohol. FAMILY HISTORY: Father: Committed suicide Mother: Fibromyalgia, hypertension ALLERGIES: Please see below. REVIEW OF SYSTEMS: 10 point review of system was negative except for what is noted in the HPI HOME MEDICATIONS: Please see below. PHYSICAL EXAMINATION: VITAL SIGNS: Please see below General: Lying in bed, no acute distress Head/Neck/Throat: Trachea midline, mucous membranes moist Eyes: Sclera anicteric, erythema or discharge appreciate bilateral Thorax: Normal respiratory effort on room air, lungs clear to auscultation bilaterally, no wheezes/rales/rhonchi Cardiovascular: Tachycardic to 130, regular rhythm, normal S1, S2; no S3, S4, rubs/gallops/murmurs Abdomen: Bowel sounds present, soft/nontender/nondistended Genitourinary: No CVA tenderness, no Keating in place Musculoskeletal: Moving all extremities, no edema Skin: Warm, dry Neurologic: AAOx3, speech fluent and goal-directed, no focal deficits, grossly intact LABORATORY DATA: See below. IMAGING: No imaging to review at this time MICROBIOLOGY: Please see below. ASSESSMENT/PLAN: 31-year-old male presented emergency room department with complaints of nausea and vomiting. He was noted to be in DKA in the emergency room department. #DKA -Likely secondary to noncompliance and possibly infectious etiology considering he tested positive COVID-19. -Fluids: Received a liter bolus emergency room department will give him an additional liter. Start him on normal saline for the first 2 to 3 hours with potassium. This should be adjusted once his repeat blood work is done to appropriate fluids based on electrolytes and blood glucose. If blood glucose is less than 200-250 substitute fluids for including dextrose. -Insulin: Continue insulin drip until anion gap closes. Once anion hemoglobin closes he should be given subcutaneous basal regimen with a 2-hour overlap with insulin drip. At that time he can begin solid foods. If he is not nauseated or vomiting it is okay for him to drink water. -Electrolyte: hold insulin if potassium less than 3.3, replete and hold potassium is greater than 5.5. Repeat magnesium and phosphorus. #Atypical chest pain -We will obtain EKG and follow-up on troponins. This likely due to his vomiting. #Abdominal pain -Mainly in the epigastric region we will empirically start Protonix. Likely due to his DKA. #Leukocytosis -Likely reactive. Follow off antibiotics at this time #COVID-19 -Tested positive. Saturating well on room air. Continue to monitor respiratory status. #DVT prophylaxis -Lovenox Vital Signs Vital Signs Date Time Temp Pulse Resp B/P (MAP) Pulse Ox O2 Delivery O2 Flow Rate FiO2 08/24/21 17:00 115 18 122/64 (83) 97 Room Air Laboratory Data Labs 24H Laboratory Tests 2 08/24/21 14:36: Bedside Glucose (Misc Panel) 598*H 08/24/21 14:42: POC Glucose (Misc Panel) 666*H, POC Sodium (Misc Panel) 127L, POC Potassium (Misc Panel) 3.6, POC Chloride (Misc Panel) 80L, POC Total CO2 (Misc Panel) 27.0, POC Blood Urea Nitrogen (Misc Panel 23, POC Ionized Calcium (Misc Panel) 4.1L, POC Creatinine (Misc Panel) 0.9, POC Hematocrit (Misc Panel) 47.0 08/24/21 15:08: Anion Gap 22H, Glomerular Filtration Rate > 60.0, Estimated Mean Plasma Glucose 272H, Hemoglobin A1c 11.1, Osmolality 307H, Calcium Level 9.7, Total Bilirubin 1.2H, Direct Bilirubin 0.3H, Aspartate Amino Transf (AST/SGOT) 11, Alanine Aminotransferase (ALT/SGPT) 26, Alkaline Phosphatase 135H, Total Protein 8.6H, Albumin 4.6, Albumin/Globulin Ratio 1.2, Lipase 67L, Ethyl Alcohol Level 0.003, B-Hydroxybutyrate > 46.00H 08/24/21 15:43: Urine Color COLORLESS, Urine Appearance CLEAR, Urine pH 6.0, Urine Specific [place] 1.025, Urine Protein NEGATIVE, Urine Glucose (UA) 3+H, Urine Ketones 2+H, Urine Blood 1+H, Urine Nitrite NEGATIVE, Urine Bilirubin NEGATIVE, Urine Urobilinogen 0.2, Urine Leukocyte Esterase NEGATIVE, Urine WBC (Auto) 1, Urine RBC (Auto) 1, Urine Hyaline Casts (Auto) 0, Urine Bacteria (Auto) NEGATIVE, Urine Squamous Epithelial Cells 0, Urine Sperm (Auto) , Blood Gas Bicarbonate Standard 28.6, Venous Blood pH 7.548H, Venous Blood Partial Pressure CO2 30.7L, Venous Blood Partial Pressure O2 124.6H, Venous Blood Total Carbon Dioxide 27.1, Venous Blood HCO3 26.1, Venous Blood Oxygen Saturation 98.6H, Venous Blood Base Excess 4.6H, Coronavirus (COVID-19)(PCR) POSITIVEA, Influenza Type A (RT-PCR) NEGATIVE, Influenza Type B (RT-PCR) NEGATIVE, Respiratory Syncytial Virus (PCR) NEGATIVE 08/24/21 17:07: Bedside Glucose (Misc Panel) 448H CBC/BMP Laboratory Tests 08/24/21 15:08 Home Medications Scheduled Carbamazepine (Carbamazepine) 200 Mg Tablet, 200 MG PO BID Insulin Glargine,Hum.rec.anlog (Lantus Solostar) 100 Unit/1 Ml Insuln.pen, 20 UNIT SC QAM Insulin Lispro (Humalog) 100 Unit/1 Ml Cartridge, 100 UNITS SC ACHS Pantoprazole Sodium (Protonix) 40 Mg Granpkt.dr, 40 MG PO DAILY Allergies Coded Allergies: No Known Allergies (Unverified , 02/26/16) A-FIB/CHADSVASC A-FIB History Current/History of A-Fib/PAF?: No JOANN ALONSO M.D. Aug 24, 2021 18:02
[2021-08-24] MEDS ORDERED: PANT-23 PO (18:24)
[2021-08-24] MEDS ORDERED: HOME MED LIST COMPLETE! XX SCH (18:25)
--- OUTSIDE RECORDS SUMMARY | 2021-08-24 18:34 | CCD ---
Author Author [facility] Address Unknown Phone Unavailable Support Name Relationship Address Phone VANESSA GARVEY Next Of Kin Unknown UE Next Of Kin Unknown Unavailable ST Next Of Kin Unknown Unavailable DREW VERDUZCO Next Of Kin [address] [place] [address] Re-disclosure Warning The records that [...] is protected by Article 27-F of the [facility] Public Health law. If you continue you may have access to information: Regarding HIV / AIDS; Provided by facilities licensed or operated by the [facility] Office of Mental Health; or Provided by the [facility] Office for People With Developmental Disabilities. If such information is present, then the following [facility] mandated warning applies: This information [...] Description Data Source(s) Unknown Male Problem [facility] ([facility]) Medications No Information Insurance Providers Payer name Policy type / Coverage type Policy ID Covered constitution party ID Covered constitution party's relationship to courtney Policy Courtney Plan Information [facility] [id number] [facility] [id number] SELF PAY ONLY [id number] SP [id number] [facility] COMMUNITY PLAN MCDO [id number] SP [id number] [facility] O [id number] S [id number] [facility] COMMUNTY PLAN [id number] 18 [id number] [facility] Communty Plan Medicaid [id number] 0.8914.0 Self [id number] [facility] Communty Plan Medicaid [id number] 0.8914.0 Self [id number] [facility] COMMUNITY PLAN XIX [id number] 18 [id number] [facility] AMERICHOICE XIX -O [id number] 18 [id number] [facility] Communty Plan Medicaid [id number] 0.8914.0 Self [id number] [facility] COMMUNITY PLAN [id number] 18 [id number] [facility] Community Plan Commercial [id number] Self [id number] [facility] Communty Plan Medicaid [id number] 0.8914.0 Self [id number] [facility] COMMUNITY PLAN [place] [id number] 18 [id number] [facility] Communty Plan Medicaid [id number] 0.8914.0 Self [id number] [facility] Community Plan Commercial [id number] Self [id number] [facility] Community Plan Medicaid [id number] Self [id number] [facility] [email or web address] [id number] Self [id number] [facility] [id number] 18 [id number] Un Community Plan Medicaid [id number] Self [id number] [facility] [email or web address] [id number] Self [id number] Un Community Plan Medicaid [id number] Self [id number] [facility] [email or web address] [id number] Self 10 [id number] Un Community Plan Medicaid [id number] Self [id number] [facility] Community Plan Medicaid [id number] Self [id number] [facility] Community Plan Medicaid [id number] Self [place] [id number] SP [id number] J [facility] [id number] 18 [id number] MEDICAID [id number] SP [id number] Problems, Conditions, and Diagnoses No Information Surgeries/Procedures No Information Results No Information Social History No Information
[2021-08-24] MEDS: KCL 40MEQ in NS 1000ML 1,000 ML IV SCH (18:47)
[2021-08-24] MEDS: ENOXAPARIN 40MG/0.4ML SYRINGE (J1650 PER 10MG) SC SCH (20:04)
[2021-08-24 20:25] LABS: BLOOD UREA NITROGEN 21 MG/DL (7-18); CALCIUM LEVEL 9.9 MG/DL (8.5-10.1); CARBON DIOXIDE LEVEL 33 MEQ/L (21-32); CHLORIDE LEVEL 89 MEQ/L (98-107); CREATININE FOR GFR 1.37 MG/DL (0.70-1.30); GLOMERULAR FILTRATION RATE > 60.0 (>60); GLUCOSE, FASTING 256 MG/DL (70-100); MAGNESIUM LEVEL 2.2 MG/DL (1.8-2.4); PHOSPHORUS LEVEL 2.8 MG/DL (2.5-4.9); POTASSIUM SERUM 3.3 MEQ/L (3.5-5.1); SODIUM LEVEL 134 MEQ/L (136-145)
[2021-08-24 20:31] LABS: FREE T4 1.39 NG/DL (0.76-1.46); THYROID STIMULATING HORMONE 0.612 uIU/ML (0.358-3.740)
[2021-08-24] MEDS ORDERED: POTASSIUM CHLORIDE 10MEQ SR TABLET PO ONE (20:35)
[2021-08-24] MEDS: LEVEMIR (INSULIN DETEMIR) 1 UNITS/0.01ML SC SCH (21:20)
[2021-08-24] MEDS: ONDANSETRON 4MG/2ML VIAL IV PRN (23:23)
[2021-08-25] MEDS: KCL 40MEQ in NS 1000ML 1,000 ML IV SCH ×4 (00:27→20:00)
[2021-08-25 00:34] LABS: BLOOD UREA NITROGEN 17 MG/DL (7-18); CALCIUM LEVEL 8.9 MG/DL (8.5-10.1); CARBON DIOXIDE LEVEL 32 MEQ/L (21-32); CHLORIDE LEVEL 94 MEQ/L (98-107); CREATININE FOR GFR 1.01 MG/DL (0.70-1.30); GLOMERULAR FILTRATION RATE > 60.0 (>60); GLUCOSE, FASTING 244 MG/DL (70-100); MAGNESIUM LEVEL 1.7 MG/DL (1.8-2.4); PHOSPHORUS LEVEL 2.9 MG/DL (2.5-4.9); POTASSIUM SERUM 3.6 MEQ/L (3.5-5.1); SODIUM LEVEL 135 MEQ/L (136-145)
[2021-08-25] MEDS ORDERED: MAG SULF 1GM/100ML (MAG RUN) 1 GM in IV 1 EA IV ONE (01:35)
[2021-08-25] MEDS: carBAMazepine 200MG TABLET PO SCH ×2 (03:50→20:01)
[2021-08-25 05:11] LABS: BLOOD UREA NITROGEN 16 MG/DL (7-18); CALCIUM LEVEL 8.5 MG/DL (8.5-10.1); CARBON DIOXIDE LEVEL 31 MEQ/L (21-32); CHLORIDE LEVEL 97 MEQ/L (98-107); CREATININE FOR GFR 0.99 MG/DL (0.70-1.30); GLOMERULAR FILTRATION RATE > 60.0 (>60); GLUCOSE, FASTING 236 MG/DL (70-100); MAGNESIUM LEVEL 2.4 MG/DL (1.8-2.4); PHOSPHORUS LEVEL 3.2 MG/DL (2.5-4.9); POTASSIUM SERUM 3.9 MEQ/L (3.5-5.1); SODIUM LEVEL 136 MEQ/L (136-145)
[2021-08-25] MEDS: ONDANSETRON 4MG/2ML VIAL IV PRN ×2 (06:39→13:35)
[2021-08-25 08:31] LABS: HEMATOCRIT 41.8 % (42.0-52.0); HEMOGLOBIN 14.7 g/dl (13.5-17.5); MEAN CORPUSCULAR HEMOGLOBIN 30.4 pg (27.0-33.0); MEAN CORPUSCULAR HGB CONC 35.2 g/dl (32.0-36.5); MEAN CORPUSCULAR VOLUME 86.5 fl (80.0-96.0); PLATELET COUNT, AUTOMATED 212 10^3/uL (150-450); RED BLOOD COUNT 4.83 10^6/uL (4.30-6.10); WHITE BLOOD COUNT 18.7 10^3/uL (4.0-10.0)
--- NOTE | 2021-08-25 08:37 | ECGEPIP ---
[facility] Test Date: 2021-08-24 Pat Name: PEARL BUSTOS Department: Room: 01[facility] Gender: Male Legal Counsel: CLAUDY : 1990 Requested By: JOANN Henry Order Number: [id number] Reading MD: Norman Murphy Measurements Intervals [place] Rate: 111 P: 56 NC: 162 QRS: 49 QRSD: 102 T: 50 QT: 334 QTc: 454 Interpretive Statements Sinus tachycardia Possible Left atrial enlargement RSR' or QR pattern in V1 suggests right ventricular conduction delay Similar to tracing done 02-27-19 Electronically Signed on 08-25-2021 8:37:31 EST by Norman Murphy
[2021-08-25 09:01] LABS: BLOOD UREA NITROGEN 16 MG/DL (7-18); CALCIUM LEVEL 9.2 MG/DL (8.5-10.1); CARBON DIOXIDE LEVEL 27 MEQ/L (21-32); CHLORIDE LEVEL 98 MEQ/L (98-107); CREATININE FOR GFR 0.92 MG/DL (0.70-1.30); GLOMERULAR FILTRATION RATE > 60.0 (>60); GLUCOSE, FASTING 246 MG/DL (70-100); MAGNESIUM LEVEL 2.4 MG/DL (1.8-2.4); PHOSPHORUS LEVEL 2.8 MG/DL (2.5-4.9); POTASSIUM SERUM 4.5 MEQ/L (3.5-5.1); SODIUM LEVEL 135 MEQ/L (136-145)
[2021-08-25] MEDS: PANTOPRAZOLE 40MG VIAL (C9113 PER 1) IV SCH (09:47)
[2021-08-25 10:40] VITALS: BP 137/80
[2021-08-25] MEDS ORDERED: DEXTROSE 50% 50 ML SYRINGE IV PRN (11:15)
[2021-08-25] MEDS ORDERED: GLUCAGON INJ 1MG VIAL SC PRN (11:15)
[2021-08-25] MEDS ORDERED: GLUCOSE 4GM CHEW TABLET PO PRN (11:15)
[2021-08-25] MEDS: HumaLOG INSULIN (NovoLOG) PER UNIT SC SCH ×3 (13:34→21:00)
[2021-08-25] MEDS: MAALOX 30 ML SUSP *UDC PO PRN ×2 (13:35→20:01)
[2021-08-25 14:00] VITALS: BP 131/78
[2021-08-25] MEDS: ENOXAPARIN 40MG/0.4ML SYRINGE (J1650 PER 10MG) SC SCH (18:06)
[2021-08-25] MEDS ORDERED: KETOROLAC 30 MG/ML 1ML VIAL IV ONE (20:20)
--- NOTE | 2021-08-25 21:06 | IPNPDOC ---
Subjective Date Seen The patient was seen on 08/25/21. Subjective Chief Complaint/HPI Mr. Guardado is a 31 year old male type 1 diabetic who is here with abdominal pain, nausea, and vomiting. This morning, patient continues to have nausea and diffuse pain. Patient anion gap has closed and insulin drip was discontinued. Patient was put on basal bolus insulin and clear liquid diet. Objective Physical Examination General Exam: Positive: Alert, Cooperative, Mild Distress Eye Exam: Negative: Sclera icteric ENT Exam: Positive: Atraumatic Neck Exam: Positive: Supple Chest Exam: Positive: Clear to auscultation Heart Exam: Positive: Tachycardic, Regular Rhythm Abdomen Exam: Positive: Normal bowel sounds, Soft; Negative: Tenderness Extremity Exam: Negative: Edema Neuro Exam: Positive: Normal Speech Psych Exam: Positive: Mental status NL, Mood NL Assessment /Plan Assessment Mr. Guardado is a 31 year old male type 1 diabetic who is here with abdominal pain, nausea, and vomiting. Patient's diagnosis of DKA is unclear as he did not have acidosis. Patient may have had starvation ketosis due to N/V and COVID and hyperglycemia from insulin non-compliance. Patient's gap has resolved. Continue basal bolus insulin. Due to patient's nausea, will switch patient to clear liquid diet. Continue pantoprazole, PRN Mylanta, and PRN Zofran Plan/VTE VTE Prophylaxis Ordered?: Yes Plan 1. Ketosis and hyperglycemia without acidosis -Secondary to a combination of insulin non-complaints and poor oral intake (Starvation ketosis) -Gap resolved -Hyperglycemia improved -Continue with basal bolus insulin 2. Nausea and vomiting -Unclear etiology, possibly from COVID -Clear liquid diet -IV protonix -PO mylanta 3. Atypical chest pain -Initial troponin negative -Will repeat another troponin tomorrow 4. COVID 19 infection -Not hypoxic -Supportive care 5. Bipolar disorder -Continue carbamazepine 6. DVT ppx -Continue Lovenox Disposition: Pending improvement in N/V VS, I&O, 24H, Fishbone Vital Signs/I&O Vital Signs Date Time Temp Pulse Resp B/P (MAP) Pulse Ox O2 Delivery O2 Flow Rate FiO2 08/25/21 14:00 99.4 124 19 131/78 (95) 99 Room Air I&O- Last 24 Hours up to 6 AM 08/25/21 06:00 Intake Total 2375 ml Output Total 800 ml Balance 1575 ml Laboratory Data 24H LABS Laboratory Tests 2 08/24/21 21:41: Bedside Glucose (Misc Panel) 202H 08/24/21 22:29: Bedside Glucose (Misc Panel) 239H 08/24/21 23:59: Anion Gap 9, Glomerular Filtration Rate > 60.0, Calcium Level 8.9, Phosphorus Level 2.9, Magnesium Level 1.7L 08/25/21 04:26: Anion Gap 8, Glomerular Filtration Rate > 60.0, Calcium Level 8.5, Phosphorus Level 3.2, Magnesium Level 2.4 08/25/21 08:10: Nucleated Red Blood Cells % (auto) 0.0, Anion Gap 10, Glomerular Filtration Rate > 60.0, Calcium Level 9.2, Phosphorus Level 2.8, Magnesium Level 2.4 08/25/21 09:35: Bedside Glucose (Misc Panel) 256H 08/25/21 11:12: Bedside Glucose (Misc Panel) 282H 08/25/21 16:57: Bedside Glucose (Misc Panel) 219H CBC/BMP Laboratory Tests 08/24/21 23:59 08/25/21 04:26 08/25/21 08:10 Microbiology Microbiology 08/24/21 Blood Culture - Preliminary, Resulted No growth after 24 hours . All specim... 08/24/21 Blood Culture - Preliminary, Resulted No growth after 24 hours . All specim... KEITH SRINIVASAN DO Aug 25, 2021 21:06
[2021-08-25 21:11] LABS: AMPHETAMINES LEVEL URINE NEGATIVE (NEGATIVE); BARBITURATES URINE NEGATIVE (NEGATIVE); BENZODIAZEPINES URINE NEGATIVE (NEGATIVE); CANNABINOIDS URINE POSITIVE (NEGATIVE); COCAINE METABOLITE URINE NEGATIVE (NEGATIVE); METHADONE URINE NEGATIVE (NEGATIVE); OPIATES URINE NEGATIVE (NEGATIVE); PHENCYCLIDINE URINE NEGATIVE (NEGATIVE)
[2021-08-25] MEDS: LEVEMIR (INSULIN DETEMIR) 1 UNITS/0.01ML SC SCH (21:43)
[2021-08-25] MEDS: ACETAMINOPHEN TAB 650MG DOSE (2X325MG) PO PRN (21:43)
[2021-08-25 22:00] VITALS: BP 114/72
[2021-08-25 22:08] LABS: BLOOD UREA NITROGEN 11 MG/DL (7-18); CALCIUM LEVEL 8.8 MG/DL (8.5-10.1); CARBON DIOXIDE LEVEL 24 MEQ/L (21-32); CHLORIDE LEVEL 102 MEQ/L (98-107); CREATININE FOR GFR 0.87 MG/DL (0.70-1.30); GLOMERULAR FILTRATION RATE > 60.0 (>60); GLUCOSE, FASTING 201 MG/DL (70-100); POTASSIUM SERUM 4.5 MEQ/L (3.5-5.1); SODIUM LEVEL 135 MEQ/L (136-145)
[2021-08-26] MEDS: ACETAMINOPHEN TAB 650MG DOSE (2X325MG) PO PRN (04:29)
[2021-08-26] MEDS: MAALOX 30 ML SUSP *UDC PO PRN ×2 (04:29→18:12)
[2021-08-26 04:30] VITALS: BP 146/91
[2021-08-26] MEDS: ONDANSETRON 4MG/2ML VIAL IV PRN ×2 (04:33→08:53)
[2021-08-26 08:02] LABS: BASO % 0.2 % (0.0-1.0); EOS % 0.2 % (0.0-3.0); HEMATOCRIT 41.5 % (42.0-52.0); HEMOGLOBIN 14.1 g/dl (13.5-17.5); LYMPH # 2.2 10^3/uL (1.5-5.0); LYMPH % 19.6 % (24.0-44.0); MEAN CORPUSCULAR VOLUME 88.3 fl (80.0-96.0); MONO # 0.9 10^3/uL (0.0-0.8); MONO % 8.5 % (2.0-8.0); NEUTROPHILS # 7.8 10^3/uL (1.5-8.5); NEUTROPHILS % 70.9 % (36.0-66.0); PLATELET COUNT, AUTOMATED 172 10^3/uL (150-450)
[2021-08-26 08:28] LABS: ALBUMIN 3.4 GM/DL (3.2-5.2); ALT/SGPT 19 U/L (12-78); BILIRUBIN,TOTAL 0.7 MG/DL (0.2-1.0); BLOOD UREA NITROGEN 14 MG/DL (7-18); CALCIUM LEVEL 9.2 MG/DL (8.5-10.1); CARBON DIOXIDE LEVEL 25 MEQ/L (21-32); CHLORIDE LEVEL 100 MEQ/L (98-107); CREATININE FOR GFR 0.94 MG/DL (0.70-1.30); GLOMERULAR FILTRATION RATE > 60.0 (>60); GLUCOSE, FASTING 227 MG/DL (70-100); MAGNESIUM LEVEL 2.5 MG/DL (1.8-2.4); POTASSIUM SERUM 4.5 MEQ/L (3.5-5.1); SODIUM LEVEL 135 MEQ/L (136-145)
[2021-08-26] MEDS: HumaLOG INSULIN (NovoLOG) PER UNIT SC SCH ×4 (08:52→20:13)
[2021-08-26] MEDS: carBAMazepine 200MG TABLET PO SCH ×2 (08:53→20:11)
[2021-08-26] MEDS: PANTOPRAZOLE 40MG VIAL (C9113 PER 1) IV SCH (08:53)
[2021-08-26] MEDS ORDERED: KETOROLAC 30 MG/ML 1ML VIAL IV PRN (10:40)
[2021-08-26] MEDS: NORCO, ANEXSIA 5/325MG TABLET (HYDROcodone/ACETAMINOPHEN) PO PRN ×2 (12:54→20:12)
[2021-08-26 14:00] VITALS: BP 122/75
--- NOTE | 2021-08-26 16:01 | IPNPDOC ---
Subjective Date Seen The patient was seen on 08/26/21. Subjective Chief Complaint/HPI Mr. Guardado is a 31 year old male type 1 diabetic who is here with abdominal pain, nausea, and vomiting. This morning, he feels about the same. Still has nausea and diffuse pain. He was able to tolerate the sweet liquids. He was unable to tolerate water. Otherwise, blood sugars controlled and patient does not have any acidosis. White blood count has trended down from 21.5 to 11. Objective Physical Examination General Exam: Positive: Alert, Cooperative Eye Exam: Negative: Sclera icteric ENT Exam: Positive: Atraumatic Neck Exam: Positive: Supple Chest Exam: Positive: Clear to auscultation Heart Exam: Positive: Tachycardic, Regular Rhythm Abdomen Exam: Positive: Normal bowel sounds, Soft; Negative: Tenderness Extremity Exam: Negative: Edema Neuro Exam: Positive: Normal Speech Psych Exam: Positive: Mental status NL, Mood NL Assessment /Plan Assessment Mr. Guardado is a 31 year old male type 1 diabetic who is here with abdominal pain, nausea, and vomiting. Patient's diagnosis of DKA is unclear as he did not have acidosis. Patient may have had starvation ketosis due to N/V and COVID and hyperglycemia from insulin non-compliance. Patient's gap has resolved. Continue basal bolus insulin. Due to patient's nausea, patient on clear liquid diet. Continue pantoprazole, PRN Mylanta, and PRN Zofran. We will add on Carafate Plan/VTE VTE Prophylaxis Ordered?: Yes Plan 1. Ketosis and hyperglycemia without acidosis -Secondary to a combination of insulin non-complaints and poor oral intake (Sta rvation ketosis) -Gap resolved -Hyperglycemia improved -Continue with basal bolus insulin 2. Nausea and vomiting -Unclear etiology, possibly from COVID -Clear liquid diet -IV protonix -PO mylanta Added on Carafate 3. Atypical chest pain -Troponins negative x2 Pain control and supportive care 4. COVID 19 infection -Not hypoxic -Supportive care 5. Bipolar disorder -Continue carbamazepine 6. DVT ppx -Continue Lovenox Disposition: Pending improvement in N/V and tolerance of diet VS, I&O, 24H, Fishbone Vital Signs/I&O Vital Signs Date Time Temp Pulse Resp B/P (MAP) Pulse Ox O2 Delivery O2 Flow Rate FiO2 08/26/21 14:00 98.8 108 18 122/75 (91) 95 Room Air I&O- Last 24 Hours up to 6 AM 08/26/21 06:00 Intake Total 3863 ml Output Total 1620 ml Balance 2243 ml Laboratory Data 24H LABS Laboratory Tests 2 08/25/21 16:57: Bedside Glucose (Misc Panel) 219H 08/25/21 21:10: Bedside Glucose (Misc Panel) 198H 08/25/21 21:38: Anion Gap 9, Glomerular Filtration Rate > 60.0, Calcium Level 8.8, Troponin I High Sensitivity 13.0 08/26/21 05:53: Bedside Glucose (Misc Panel) 224H 08/26/21 07:47: Immature Granulocyte % (Auto) 0.6, Neutrophils (%) (Auto) 70.9H, Lymphocytes (%) (Auto) 19.6L, Monocytes (%) (Auto) 8.5H, Eosinophils (%) (Auto) 0.2, Basophils ( %) (Auto) 0.2, Neutrophils # (Auto) 7.8, Lymphocytes # (Auto) 2.2, Monocytes # (Auto) 0.9H, Eosinophils # (Auto) 0.0, Basophils # (Auto) 0.0, Nucleated Red Blood Cells % (auto) 0.0, Anion Gap 10, Glomerular Filtration Rate > 60.0, Calcium Level 9.2, Magnesium Level 2.5H, Total Bilirubin 0.7, Aspartate Amino Transf (AST/SGOT) 9, Alanine Aminotransferase (ALT/SGPT) 19, Alkaline Phosphatase 100, Total Protein 7.0, Albumin 3.4#, Albumin/Globulin Ratio 0.9 08/26/21 11:37: Bedside Glucose (Misc Panel) 176H CBC/BMP Laboratory Tests 08/25/21 21:38 08/26/21 07:47 Microbiology Microbiology 08/24/21 Blood Culture - Preliminary, Resulted No growth after 24 hours . All specim... 08/24/21 Blood Culture - Preliminary, Resulted No growth after 24 hours . All specim... KEITH SRINIVASAN DO Aug 26, 2021 16:00
[2021-08-26] MEDS: ENOXAPARIN 40MG/0.4ML SYRINGE (J1650 PER 10MG) SC SCH (18:12)
[2021-08-26] MEDS: SUCRALFATE SUSP 1GM/10ML UD PO SCH ×2 (18:13→20:11)
[2021-08-26 20:15] VITALS: BP 117/78
[2021-08-26] MEDS: LEVEMIR (INSULIN DETEMIR) 1 UNITS/0.01ML SC SCH (20:20)
[2021-08-27 05:15] VITALS: BP 106/66
[2021-08-27] MEDS: NORCO, ANEXSIA 5/325MG TABLET (HYDROcodone/ACETAMINOPHEN) PO PRN ×3 (05:17→20:56)
[2021-08-27] MEDS: MAALOX 30 ML SUSP *UDC PO PRN ×2 (05:18→13:26)
[2021-08-27 07:46] LABS: HEMATOCRIT 40.3 % (42.0-52.0); HEMOGLOBIN 13.7 g/dl (13.5-17.5); MEAN CORPUSCULAR HEMOGLOBIN 29.8 pg (27.0-33.0); MEAN CORPUSCULAR VOLUME 87.6 fl (80.0-96.0); PLATELET COUNT, AUTOMATED 180 10^3/uL (150-450)
[2021-08-27 08:11] LABS: BLOOD UREA NITROGEN 11 MG/DL (7-18); CALCIUM LEVEL 8.5 MG/DL (8.5-10.1); CARBON DIOXIDE LEVEL 27 MEQ/L (21-32); CHLORIDE LEVEL 102 MEQ/L (98-107); CREATININE FOR GFR 0.78 MG/DL (0.70-1.30); GLOMERULAR FILTRATION RATE > 60.0 (>60); GLUCOSE, FASTING 148 MG/DL (70-100); SODIUM LEVEL 138 MEQ/L (136-145)
[2021-08-27] MEDS: PANTOPRAZOLE 40MG VIAL (C9113 PER 1) IV SCH (09:36)
[2021-08-27] MEDS: HumaLOG INSULIN (NovoLOG) PER UNIT SC SCH ×4 (09:36→20:43)
[2021-08-27] MEDS: carBAMazepine 200MG TABLET PO SCH ×2 (09:36→20:47)
[2021-08-27] MEDS: SUCRALFATE SUSP 1GM/10ML UD PO SCH ×4 (09:36→20:48)
[2021-08-27 14:00] VITALS: BP 121/89
--- NOTE | 2021-08-27 15:36 | IPNPDOC ---
Subjective Date Seen The patient was seen on 08/27/21. Subjective Chief Complaint/HPI Mr. Guardado is a 31 year old male type 1 diabetic who is here with abdominal pain, nausea, and vomiting. This morning, he was seen sitting up. He still has diffuse pain and nausea, but is better than yesterday. Still apprehensive to advancing diet. Chest pain is described radiating towards his back. Will order CT angio chest to r/o thoracic aortic dissection. Will also get CT abd/pelvis with IV contrast for the abdominal pain and nausea. Patient tells me that he hasn't vomited since admission, but occasionally has dry heaves. Objective Physical Examination General Exam: Positive: Alert, Cooperative Eye Exam: Negative: Sclera icteric ENT Exam: Positive: Atraumatic Neck Exam: Positive: Supple Chest Exam: Positive: Clear to auscultation Heart Exam: Positive: Tachycardic, Regular Rhythm Abdomen Exam: Positive: Normal bowel sounds, Soft Extremity Exam: Negative: Edema Neuro Exam: Positive: Normal Speech Psych Exam: Positive: Mental status NL, Mood NL Assessment /Plan Assessment Mr. Guardado is a 31 year old male type 1 diabetic who is here with abdominal pa in, nausea, and vomiting. Patient's diagnosis of DKA is unclear as he did not have acidosis. Patient may have had starvation ketosis due to N/V and COVID and hyperglycemia from insulin non-compliance. Patient's gap has resolved. Continue basal bolus insulin. Due to patient's nausea, patient on clear liquid diet. Continue pantoprazole, PRN Mylanta, PRN Zofran, and Carafate Plan/VTE VTE Prophylaxis Ordered?: Yes Plan 1. Ketosis and hyperglycemia without acidosis -Secondary to a combination of insulin non-complaints and poor oral intake (Starvation ketosis) -Gap resolved -Hyperglycemia improved -Continue with basal bolus insulin 2. Nausea and vomiting -Unclear etiology, possibly from COVID -Clear liquid diet -IV protonix -PO mylanta Carafate -Order CT abd/pelvis with IV contrast only 3. Atypical chest pain -Troponins negative x2 Pain control and supportive care -Pain radiating towards back, order CT angio chest 4. COVID 19 infection -Not hypoxic -Supportive care 5. Bipolar disorder -Continue carbamazepine 6. DVT ppx -Continue Lovenox Disposition: Pending improvement in N/V and tolerance of solid diet VS, I&O, 24H, [place] Vital Signs/I&O Vital Signs Date Time Temp Pulse Resp B/P (MAP) Pulse Ox O2 Delivery O2 Flow Rate FiO2 08/27/21 14:00 98.7 115 16 121/89 (100) 98 Room Air I&O- Last 24 Hours up to 6 AM 08/27/21 06:00 Intake Total 1340 ml Output Total 1915 ml Balance -575 ml Laboratory Data 24H LABS Laboratory Tests 2 08/26/21 16:52: Bedside Glucose (Misc Panel) 267H 08/26/21 20:10: Bedside Glucose (Misc Panel) 185H 08/27/21 07:21: Nucleated Red Blood Cells % (auto) 0.0, Anion Gap 9, Glomerular Filtration Rate > 60.0, Calcium Level 8.5 08/27/21 11:52: Bedside Glucose (Misc Panel) 180H CBC/BMP Laboratory Tests 08/27/21 07:21 Microbiology Microbiology 08/24/21 Blood Culture - Preliminary, Resulted No Growth after 48 hours. All Specime... 08/24/21 Blood Culture - Preliminary, Resulted No Growth after 48 hours. All Specime... KEITH SRINIVASAN DO Aug 27, 2021 15:36
[2021-08-27] MEDS ORDERED: CHLORASEPTIC SPRAY MT PRN (15:40)
[2021-08-27] MEDS ORDERED: ISOVUE-370 76% 100ML VIAL As Ordered ONE (15:40)
--- NOTE | 2021-08-27 16:42 | REP ---
INDICATION: abdominal pain and nausea. COMPARISON: 05/15/2018 the latest prior also with contrast TECHNIQUE: Standard helical technique after the intravenous administration of 100 cc Isovue 370. No oral bowel preparatory contrast was administered prior to the exam. FINDINGS: The liver, gallbladder, spleen, pancreas, adrenal glands, and kidneys are within normal limits. The abdominal aorta and para-aortic regions are within normal limits. A few small bowel loops may have mildly thickened khan. The bowel loops and the mesenteries are otherwise unremarkable. There is no free air. There is a trace amount of free pelvic fluid likely physiologic. There is no evidence of a mass or adenopathy. Bone window technique throughout the examination shows the osseous structures to be stable and intact. IMPRESSION: There is no evidence of acute disease. A few small bowel loops may have mildly thickened khan, however, the examination was obtained without oral bowel preparatory contrast administration. <Electronically signed by Tenzin Brice > 08/27/21 [id number]
--- NOTE | 2021-08-27 16:54 | REP ---
INDICATION: Chest pain going towards back (thoracic aorta dissection?) COMPARISON: None. TECHNIQUE: CT angiography of the chest after the intravenous administration of 100 cc Isovue 370 FINDINGS: There is no evidence of a thoracic aortic aneurysm. Multiple surgical clips are seen adjacent to the proximal descending thoracic aorta and takeoff of the left subclavian and vertebral arteries. There is no evidence of significant stenosis and those vessels opacify normally. The maximal dimension of the aortic root is 37.92 mm AP X 38.26 mm transverse at that same level. There is excellent visualization of the pulmonary arterial vasculature. No focal filling defects are present that would be considered consistent with acute pulmonary emboli. There are no pleural or pericardial effusions. There is no mediastinal or hilar adenopathy. Bone window technique throughout the examination shows the osseous structures to be within normal limits. There does, however, appear to be mild rib notching of some of the left upper ribs. Evaluation of the lung be shows no abnormal nodules, masses, or opacities. There is evidence of bilateral lung base subsegmental atelectatic change. IMPRESSION: There are some changes involving the thoracic aorta which appear to be secondary to reversal of an aortic coarctation. I have been given no history whatsoever. There is no evidence of acute disease. Findings as described above. <Electronically signed by Tenzin Brice > 08/27/21 [id number]
[2021-08-27] MEDS: ENOXAPARIN 40MG/0.4ML SYRINGE (J1650 PER 10MG) SC SCH (17:29)
[2021-08-27] MEDS: LEVEMIR (INSULIN DETEMIR) 1 UNITS/0.01ML SC SCH (20:48)
[2021-08-27 22:00] VITALS: BP 125/69
[2021-08-28] MEDS: NORCO, ANEXSIA 5/325MG TABLET (HYDROcodone/ACETAMINOPHEN) PO PRN ×2 (03:42→16:53)
[2021-08-28] MEDS: MAALOX 30 ML SUSP *UDC PO PRN (03:53)
[2021-08-28 05:43] VITALS: BP 117/85
[2021-08-28 07:41] LABS: HEMOGLOBIN 13.4 g/dl (13.5-17.5); MEAN CORPUSCULAR HEMOGLOBIN 30.1 pg (27.0-33.0); MEAN CORPUSCULAR HGB CONC 34.4 g/dl (32.0-36.5); MEAN CORPUSCULAR VOLUME 87.6 fl (80.0-96.0); PLATELET COUNT, AUTOMATED 175 10^3/uL (150-450); RED BLOOD COUNT 4.45 10^6/uL (4.30-6.10); WHITE BLOOD COUNT 7.7 10^3/uL (4.0-10.0)
[2021-08-28 07:59] LABS: BLOOD UREA NITROGEN 8 MG/DL (7-18); CALCIUM LEVEL 8.5 MG/DL (8.5-10.1); CARBON DIOXIDE LEVEL 30 MEQ/L (21-32); CHLORIDE LEVEL 103 MEQ/L (98-107); CREATININE FOR GFR 0.83 MG/DL (0.70-1.30); GLOMERULAR FILTRATION RATE > 60.0 (>60); GLUCOSE, FASTING 196 MG/DL (70-100); POTASSIUM SERUM 3.8 MEQ/L (3.5-5.1); SODIUM LEVEL 139 MEQ/L (136-145)
[2021-08-28] MEDS: carBAMazepine 200MG TABLET PO SCH ×2 (08:53→20:48)
[2021-08-28] MEDS: SUCRALFATE SUSP 1GM/10ML UD PO SCH ×4 (08:54→20:48)
[2021-08-28] MEDS: HumaLOG INSULIN (NovoLOG) PER UNIT SC SCH ×4 (08:54→20:49)
[2021-08-28] MEDS: PANTOPRAZOLE 40MG VIAL (C9113 PER 1) IV SCH (08:54)
[2021-08-28 14:21] VITALS: BP 111/83
--- NOTE | 2021-08-28 15:49 | IPNPDOC ---
Subjective Date Seen The patient was seen on 08/28/21. Subjective Chief Complaint/HPI Mr. Guardado is a 31 year old male type 1 diabetic who is here with abdominal pain, nausea, and vomiting. This morning, is feeling a little better. Denies chest pain or dyspnea. Still has diffuse body aches and intermittent nausea. He is trying to eat solids, but still wants to go back to the broth. Otherwise, he tells me that he had 4 defects of the heart and vessels. One of which was coarctation of the aorta which was seen on the CT angio chest Objective Physical Examination General Exam: Positive: Alert, Cooperative Eye Exam: Negative: Sclera icteric ENT Exam: Positive: Atraumatic Neck Exam: Positive: Supple Chest Exam: Positive: Clear to auscultation Heart Exam: Positive: Tachycardic, Regular Rhythm Abdomen Exam: Positive: Normal bowel sounds, Soft Extremity Exam: Negative: Edema Neuro Exam: Positive: Normal Speech Psych Exam: Positive: Mental status NL, Mood NL Assessment /Plan Assessment Mr. Guardado is a 31 year old male type 1 diabetic who is here with abdominal pain, nausea, and vomiting. Patient's diagnosis of DKA is unclear as he did not have acidosis. Patient may have had starvation ketosis due to N/V and COVID and hyperglycemia from insulin non-compliance. Patient's gap has resolved. Continue basal bolus insulin. Continue pantoprazole, PRN Mylanta, PRN Zofran, and Carafate for nausea. Encourage oral intake of solids as tolerated. Plan/VTE VTE Prophylaxis Ordered?: Yes Plan 1. Ketosis and hyperglycemia without acidosis -Secondary to a combination of insulin non-complaints and poor oral intake (Starvation ketosis) -Gap resolved -Hyperglycemia improved -Continue with basal bolus insulin 2. Nausea and vomiting -Unclear etiology, possibly from COVID -IV protonix -PO mylanta Carafate -CT abd/pelvis with IV contrast only negative 3. Atypical chest pain -Troponins negative x2 Pain control and supportive care -CT angio chest demonstrated signs of coarctation of the aorta repair. Patient confirms this. 4. COVID 19 infection -Not hypoxic -Supportive care 5. Bipolar disorder -Continue carbamazepine 6. DVT ppx -Continue Lovenox Disposition: Pending improvement in N/V and tolerance of solid diet VS, I&O, 24H, Fish[place] Vital Signs/I&O Vital Signs Date Time Temp Pulse Resp B/P (MAP) Pulse Ox O2 Delivery O2 Flow Rate FiO2 08/28/21 14:21 98.5 100 18 111/83 (92) 98 Room Air I&O- Last 24 Hours up to 6 AM 08/28/21 06:00 Intake Total 1780 ml Output Total 550 ml Balance 1230 ml Laboratory Data 24H LABS Laboratory Tests 2 08/27/21 17:08: Bedside Glucose (Misc Panel) 204H 08/27/21 20:25: Bedside Glucose (Misc Panel) 217H 08/28/21 05:11: Bedside Glucose (Misc Panel) 208H 08/28/21 07:25: Nucleated Red Blood Cells % (auto) 0.0, Anion Gap 6L, Glomerular Filtration Rate > 60.0, Calcium Level 8.5 08/28/21 11:34: Bedside Glucose (Misc Panel) 125H CBC/BMP Laboratory Tests 08/28/21 07:25 Microbiology Microbiology 08/24/21 Blood Culture - Preliminary, Resulted No Growth after 72 hours. All specime... 08/24/21 Blood Culture - Preliminary, Resulted No Growth after 72 hours. All specime... KEITH SRINIVASAN DO Aug 28, 2021 15:49
[2021-08-28] MEDS: CEPACOL LOZENGE PO PRN (16:53)
[2021-08-28] MEDS: ENOXAPARIN 40MG/0.4ML SYRINGE (J1650 PER 10MG) SC SCH (17:56)
[2021-08-28] MEDS: LEVEMIR (INSULIN DETEMIR) 1 UNITS/0.01ML SC SCH (20:48)
[2021-08-28 22:00] VITALS: BP 135/90
[2021-08-29] MEDS: NORCO, ANEXSIA 5/325MG TABLET (HYDROcodone/ACETAMINOPHEN) PO PRN ×2 (00:16→09:01)
[2021-08-29] MEDS: CEPACOL LOZENGE PO PRN ×2 (00:37→09:01)
[2021-08-29 05:25] VITALS: BP 124/70
[2021-08-29] MEDS: PANTOPRAZOLE 40MG VIAL (C9113 PER 1) IV SCH (07:47)
[2021-08-29] MEDS: SUCRALFATE SUSP 1GM/10ML UD PO SCH ×2 (07:47→11:56)
[2021-08-29] MEDS: carBAMazepine 200MG TABLET PO SCH (07:47)
[2021-08-29] MEDS: HumaLOG INSULIN (NovoLOG) PER UNIT SC SCH ×2 (07:48→11:57)
[2021-08-29 08:21] LABS: HEMATOCRIT 38.8 % (42.0-52.0); HEMOGLOBIN 13.9 g/dl (13.5-17.5); MEAN CORPUSCULAR HEMOGLOBIN 30.6 pg (27.0-33.0); MEAN CORPUSCULAR HGB CONC 35.8 g/dl (32.0-36.5); MEAN CORPUSCULAR VOLUME 85.5 fl (80.0-96.0); PLATELET COUNT, AUTOMATED 189 10^3/uL (150-450); RED BLOOD COUNT 4.54 10^6/uL (4.30-6.10); WHITE BLOOD COUNT 8.1 10^3/uL (4.0-10.0)
[2021-08-29 08:37] LABS: BLOOD UREA NITROGEN 10 MG/DL (7-18); CALCIUM LEVEL 8.9 MG/DL (8.5-10.1); CARBON DIOXIDE LEVEL 26 MEQ/L (21-32); CHLORIDE LEVEL 101 MEQ/L (98-107); CREATININE FOR GFR 0.74 MG/DL (0.70-1.30); GLOMERULAR FILTRATION RATE > 60.0 (>60); GLUCOSE, FASTING 239 MG/DL (70-100); SODIUM LEVEL 136 MEQ/L (136-145)
[2021-08-29] MEDS ORDERED: CARB20TA PO (12:33)
[2021-08-29] MEDS ORDERED: LANTINJ4 SC (12:33)
[2021-08-29] MEDS ORDERED: SUCR1ORA PO (12:33)
[2021-08-29] MEDS ORDERED: HUMA100I3 SC (12:33)
[2021-08-29] MEDS ORDERED: SORE15LO PO (12:33)
[2021-08-29] MEDS ORDERED: PANT-23 PO (12:33)
[2021-08-29] MEDS ORDERED: HYDR-3715 PO (12:33)
[2021-08-29] MEDS ORDERED: ACET1TAB55 PO (12:39)
--- NOTE | 2021-08-29 18:39 | DS.PDOC ---
Discharge Summary General Date of Admission Aug 24, 2021 at 17:39 Date of Discharge August 29, 2021 Discharge Summary PROCEDURES PERFORMED DURING STAY: None. ADMITTING DIAGNOSES: 1. Ketosis and hyperglycemia without acidosis 2. Nausea and vomiting 3. Atypical chest pain 4. COVID 19 infection 5. Bipolar disorder DISCHARGE DIAGNOSES: 1. Ketosis and hyperglycemia without acidosis 2. Nausea and vomiting 3. Atypical chest pain 4. COVID 19 infection 5. Bipolar disorder COMPLICATIONS/CHIEF COMPLAINT: DKA. HISTORY OF PRESENT ILLNESS: Copied from admitting attendings H&P " 31-year-old male with a past medical history of insulin-dependent diabetes mellitus, bipolar disorder, depression presented emergency room department with complaints of nausea and vomiting. He began to experience the symptoms on 08/23 and came to the emergency room department but left due to long wait. He returns today with similar complaints and reporting that he is not taking his insulin due to this. At this junction, he complained of having chest pain in the substernal region and that he attributed it to his vomiting. In the emergency room department his work-up was consistent with DKA. He also tested for COVID-19. He is saturating well on room air, he cannot recollect any exposure. He denies chills, change in appetite, loss of taste, loose stools, fever, and shortness of breath. " HOSPITAL COURSE: Patient's gap closed and insulin drip was discontinued. It was difficult to say if he had DKA as his VBG demonstrated pH of 7.548. Otherwise, patient was not hypoxic. He had diffuse pains as well as nausea and anorexia. Patient was put on basal bolus insulin. For the nausea and vomiting, patient was put on Protonix and Carafate. Patient has sore throat and the beef broth seem to help. The Cepacol lozenges helped. Today patient was able to tolerate a solid diet. His pain was controlled. Patient felt ready for home and was subsequently discharged home today. DISCHARGE MEDICATIONS: Please see below. ALLERGIES: Please see below. PHYSICAL EXAMINATION ON DISCHARGE: VITAL SIGNS: Please see below. GENERAL: Comfortable, in no apparent distress. HEENT: Head normocephalic/atraumatic, EOMI, sclera clear. NECK: Supple, no JVD. RESPIRATORY: Lungs clear to auscultation bilaterally, no rales, wheeze or rhonchi. CARDIOVASCULAR: Regular rate and rhythm. ABDOMEN: Soft, nontender, no guarding or rebound tenderness. Normal bowel sounds. MUSCLE SKELETAL: Muscle strength 5/5 in all extremities. NEUROLOGICAL: CN 312 grossly intact, no focal deficits noted. PSYCHOLOGICAL: Normal mood and affect LABORATORY DATA: Please see below. IMAGING: Radiologist interpretation CT of the abdomen pelvis with IV contrast only There is no evidence of acute disease. A few small bowel loops may have mildly thickened khan, however, the examination was obtained without oral bowel preparatory contrast administration. CT angio chest There are some changes involving the thoracic aorta which appear to be secondary to reversal of an aortic coarctation. I have been given no history whatsoever. There is no evidence of acute disease. Findings as described above. (Please see full radiologist report for further information) PROGNOSIS: Good ACTIVITY: As tolerated. DIET: Carbohydrate consistent diet DISCHARGE PLAN: Return to home. Follow-up with your PCP within 1 week DISPOSITION: 01 Home, Self-Care. DISCHARGE INSTRUCTIONS: 1. Follow-up with your PCP within a week. DISCHARGE CONDITION: Stable. Total time spent on discharge planning, discharge summary, medication reconciliation: 45 minutes Vital Signs/I&Os Vital Signs Date Time Temp Pulse Resp B/P (MAP) Pulse Ox O2 Delivery O2 Flow Rate FiO2 08/29/21 09:31 18 Room Air 08/29/21 05:25 98.5 90 124/70 (88) 96 I&O- Last 24 Hours up to 6 AM 08/29/21 06:00 Intake Total 1560 ml Balance 1560 ml Laboratory Data Labs 24H Laboratory Tests 2 08/28/21 20:11: Bedside Glucose (Misc Panel) 263H 08/29/21 05:06: Bedside Glucose (Misc Panel) 234H 08/29/21 08:02: Nucleated Red Blood Cells % (auto) 0.0, Anion Gap 9, Glomerular Filtration Rate > 60.0, Calcium Level 8.9 08/29/21 11:40: Bedside Glucose (Misc Panel) 256H CBC/BMP Laboratory Tests 08/29/21 08:02 FSBS Laboratory Tests Test 08/28/21 20:11 08/29/21 05:06 08/29/21 11:40 Range/Units Bedside Glucose (Misc Panel) 263 234 256 70-105 MG/DL Microbiology Microbiology 08/24/21 Blood Culture - Preliminary, Resulted No Growth after 72 hours. All specime... 08/24/21 Blood Culture - Preliminary, Resulted No Growth after 72 hours. All specime... Discharge Medications Scheduled Carbamazepine (Carbamazepine) 200 Mg Tablet, 200 MG PO BID Insulin Glargine,Hum.rec.anlog (Lantus Solostar) 100 Unit/1 Ml Insuln.pen, 20 UNIT SC QAM Insulin Lispro (Humalog) 100 Unit/1 Ml Cartridge, 1 DOSE SC ACHS Pantoprazole Sodium (Pantoprazole Sodium) 40 Mg Tablet.dr, 40 MG PO DAILY Sucralfate (Sucralfate) 1 Gm/10 Ml Oral.susp, 1 GM PO ACHS Scheduled PRN Acetaminophen (Acetaminophen) 325 Mg Tablet, 650 MG PO Q6HP PRN for MILD PAIN or TEMP > 101 Benzocaine/Menthol (Sore Throat Lozenge) 1 Each Lozenge, 1 NINA PO Q2HP PRN for SORE THROAT Hydrocodone/Acetaminophen (Hydrocodone-Acetamin 5-325 mg) 1 Each Tablet, 1 TAB PO Q6HP PRN for MODERATE PAIN (PS 5-7) Allergies Coded Allergies: No Known Allergies (Unverified , 02/26/16) KEITH SRINIVASAN DO Aug 29, 2021 18:39
== END 2021-08-29 15:15 | disposition home or self-care (01) | DRG 420 ==
LOC: M ED 14:30 → M ED INP 17:39 → ENRESERV 08-25 06:48 → M 4MAIN 08-25 10:35
PROVIDERS: ADMIT Internal Medicine; ATTEND Internal Medicine
DX: E10.65 Type 1 diabetes mellitus with hyperglycemia (principal); U07.1 COVID-19; F31.9 Bipolar disorder, unspecified; R07.89 Other chest pain; Z79.4 Long term (current) use of insulin; Z79.899 Other long term (current) drug therapy; F12.90 Cannabis use, unspecified, uncomplicated